=== PATIENT | female | born 1965 | race Caucasian/White ===

== ENCOUNTER 2018-10-08 09:51 | Day surgery (SDC) | payer BC, SELFPAY ==
[2018-10-08 10:12] VITALS: BP 129/85; PULSE 71; RESP 16; TEMP 36.2; O2SAT 96
[2018-10-08] MEDS: Lactated Ringers 1,000 ML 30 ML IV (10:22)
--- NOTE | 2018-10-08 12:00 | W.COLOREPORT ---
Date of service: 10/08/18 Time of Service: 10:40 Colonoscopy Report Date of procedure: 10/08/18 Pre-op diagnosis general: Colorectal cancer screening Post-op diagnosis procedure note: other (Normal colonoscopy to the cecum) Procedure: Colonoscopy to the cecum Surgeon: Jarred Martinez Anesthesia proc note operative: MAC (Logan Ha CRNA; ASA 2 Mallampati class II) Estimated blood loss (mL): 0 Pathology: none sent Complications: None Disposition: same day Indications: 53-year-old female presenting for colorectal cancer screening by colonoscopy. She has been asymptomatic since her last colonoscopy except for change in bowel habits from loose to, more constipation. Her last colonoscopy was unremarkable. She has no family history of colorectal cancer. The risks and benefits of the procedure have been discussed with her, and all her questions have been answered to her satisfaction. Consents been obtained to proceed with colonoscopy. Prep: Miralax/Dulcolax (Prep quality good) Procedure Start Time: 11:41 Procedure End Time: 11:55 Retraction Time: 9 Findings: Examining the colon from cecum to anus, no abnormalities were noted of the colon, rectum, and anus. Procedure Description: The patient was seen in the day surgery waiting area. Her identification was confirmed, and procedure checked. She was then brought to the procedure room. Monitoring for telemetry, blood pressure, oxygen saturation, and end tidal CO2 monitoring were applied. An appropriate time out was performed to confirm, identification, allergies, medication, procedure, was performed. Sedation was titrated for affect by the CATRACHITA; Once adequate sedation was achieved, I performed a inspection of the external perineum, and a digitial rectal examination. No significant external abnormalities were noted. On digital rectal examination, there was no blood, no masses, good rectal tone. I advanced the colonoscope from the anus to the cecum under direct visualization. The cecum was identified by the ileal-cecal valve, and the appendiceal orifice. The scope was then withdrawn in circumferential manner from the cecum to the rectum. No abnormalites were noted in the colon. The scope was then withdrawn into the rectum, and retroflexed. No abnormalities were noted of the rectum or anorectal junction. The scope was then withdrawn, terminating the procedure. There were no complications during the procedure, and the patient tolerated the procedure well. She was returned to the day surgery recovery area in good condition. Plan: Will continue with routine screening for colorectal cancer according to current consensus guidelines, which is currently 10 years.
--- NOTE | 2018-10-08 12:06 | W.PM.DSUDISC ---
Discharge Plan Disposition Patient Disposition: HOME Condition: Good Discharge Details Reason For Visit: Colorectal cancer screening Attending Provider: Jarred Martinez Primary Care Provider: Uli Braxton Home Meds and New Rx's Prescriptions: Continue diphenhydramine HCl 25 MG capsule 25 mg PO PRN RF: 0 albuterol sulfate 2.5 MG/3 ML solution for nebulization 2.5 mg Inhalation q4-6 h prn Qty: 1 RF: 0 albuterol sulfate [ProAir HFA] 8.5 GM HFA aerosol inhaler 1 - 2 puff Inhalation Q6H PRN Qty: 3 RF: 3 omeprazole 20 MG capsule,delayed release(DR/EC) 20 mg PO DAILY Qty: 90 RF: 4 coenzyme [id number] [Co Q-10 (with Vit E)] 1 EACH capsule 1 ea PO DAILY Qty: 90 RF: 3 krill oil 500 MG capsule 500 mg PO DAILY RF: 0 pravastatin 40 MG tablet 40 mg PO DAILY 90 Days Qty: 90 RF: 3 buspirone 7.5 MG tablet 7.5 mg PO BID Qty: 180 RF: 3 budesonide-formoterol [Symbicort] 10.2 GM HFA aerosol inhaler 2 puff Inhalation BID Qty: 1 RF: 11 fluticasone 16 GM spray,suspension 1 spray NS BID Qty: 3 RF: 4 Metoprolol Succinate 50 MG TAB.ER.24H 50 mg PO DAILY 90 Days Qty: 90 RF: 3 acetaminophen [Tylenol Extra Strength] 500 mg Tablet 500 mg PO PRN PRNRF: 0 Discharge Instructions Instructions: Colonoscopy (DC) Activity:: Activity as Tolerated Diet:: As Tolerated Discharge Orders Discharge Orders: Discharge Order (Routine); Ordered 10/08/18 Ordered By: Jarred Martinez DS: Diagnosis Discharge Diagnosis (1) Encounter for colorectal cancer screening: Start date: 10/08/18 Start time: 12:08 Status: Acute Asessment and Plan: Colonoscopy performed: Colonoscopy Report Date of procedure: 10/08/18 Pre-op diagnosis general: Colorectal cancer screening Post-op diagnosis : other (Normal colonoscopy to the cecum) Procedure: Colonoscopy to the cecum Surgeon: Jarred Martinez Anesthesia : MAC (Logan Ha CRNA; ASA 2 Mallampati class II) Estimated blood loss (mL): 0 Pathology: none sent Complications: None Disposition: same day Indications: 53-year-old female presenting for colorectal cancer screening by colonoscopy. She has been asymptomatic since her last colonoscopy except for change in bowel habits from loose to, more constipation. Her last colonoscopy was unremarkable. She has no family history of colorectal cancer. The risks and benefits of the procedure have been discussed with her, and all her questions have been answered to her satisfaction. Consents been obtained to proceed with colonoscopy. Prep: Miralax/Dulcolax (Prep quality good) Procedure Start Time: 11:41 Procedure End Time: 11:55 Retraction Time: 9 Findings: Examining the colon from cecum to anus, no abnormalities were noted of the colon, rectum, and anus. Procedure Description: The patient was seen in the day surgery waiting area. Her identification was confirmed, and procedure checked. She was then brought to the procedure room. Monitoring for telemetry, blood pressure, oxygen saturation, and end tidal CO2 monitoring were applied. An appropriate time out was performed to confirm, identification, allergies, medication, procedure, was performed. Sedation was titrated for affect by the CASTING FINISHER; Once adequate sedation was achieved, I performed a inspection of the external perineum, and a digitial rectal examination. No significant external abnormalities were noted. On digital rectal examination, there was no blood, no masses, good rectal tone. I advanced the colonoscope from the anus to the cecum under direct visualization. The cecum was identified by the ileal-cecal valve, and the appendiceal orifice. The scope was then withdrawn in circumferential manner from the cecum to the rectum. No abnormalites were noted in the colon. The scope was then withdrawn into the rectum, and retroflexed. No abnormalities were noted of the rectum or anorectal junction. The scope was then withdrawn, terminating the procedure. There were no complications during the procedure, and the patient tolerated the procedure well. She was returned to the day surgery recovery area in good condition. Plan: Will continue with routine screening for colorectal cancer according to current consensus guidelines, which is currently 10 years.
[2018-10-08 13:15] VITALS: BP 136/93; PULSE 72; RESP 16; TEMP 35.6; O2SAT 95
== END 2018-10-08 13:01 | disposition home or self-care (01) ==
PROVIDERS: PCP Family Medicine; Visit Provider Surgery
PROC: 0DJD8ZZ Inspection of Lower Intestinal Tract, Via Natural or Artificial Opening Endoscopic (ICD-10-PCS; CPT 45378; principal; 2018-10-08 12:00)
DX: Z12.11 Encounter for screening for malignant neoplasm of colon (principal); R19.8 Other specified symptoms and signs involving the digestive system and abdomen
CPT/HCPCS: 45378

== ENCOUNTER 2019-03-29 16:55 | Outpatient (REF) | payer BC, SELFPAY | END 2019-03-29 17:15 | LOC: LBN 16:55 | PROVIDERS: PCP Family Medicine; Visit Provider Family Medicine | DX: J02.9 Acute pharyngitis, unspecified (principal) | CPT/HCPCS: 87070 ==

== ENCOUNTER 2019-05-01 08:46 | Emergency (ER) | payer BC, SELFPAY ==
--- NOTE | 2019-05-01 08:51 | NUR.NOTE ---
pt has history of neck pain post a fall from a ladder 3 years ago. 2 nights ago PT awoke in the middle of the night with 7/10 pain in her lower neck and numbness in her right and left arm significantly more numbness in her right then her left
[2019-05-01 08:54] VITALS: BP 121/75; PULSE 71; RESP 18; TEMP 36.9; O2SAT 95
--- NOTE | 2019-05-01 09:16 | DI.RAD_ITS ---
SYMPTOM/DIAGNOSIS: NECK PAIN, C 6-7 TENDERNESS CERVICAL SPINE: Five views were obtained. There is a mild lower cervical kyphosis and there is mild loss of disc space height at C 5-6 level. Otherwise intervertebral disc spaces appear well maintained. Mild hypertrophic spurring of the facet joints and vertebral endplates is noted at multiple levels. Neural foramina appear fairly well maintained as visualized. No other focal bony abnormality is seen. CONCLUSION: Mild degenerative changes. No other significant findings.
[2019-05-01] MEDS: Lidocaine 5% Patch 1 PATCH TP (09:32)
--- NOTE | 2019-05-01 10:28 | DI.VRAD_ITS ---
EXAM: XR Cervical Spine, 4 or 5 Views EXAM DATE/TIME: 05/01/2019 9:17 AM CLINICAL HISTORY: 54 years old, female; Signs and symptoms; Symptoms: Neck pain. Woke up with the neck pain Thursday morning from sleep. No trauma TECHNIQUE: Imaging protocol: XR of the cervical spine, 4 or 5 views. COMPARISON: No relevant prior studies available. FINDINGS: Vertebrae: Mild facet arthropathy at C2-3. No acute fracture. Normal alignment. Soft tissues: Normal. IMPRESSION: No acute abnormality. Dictated and Authenticated by: Tasneem Galeana MD. Ordering:MICHAEL Kwon MD
--- NOTE | 2019-05-01 10:42 | ED.GENADUL_ITS ---
Discharge Plan Disposition Patient Disposition: HOME Condition: Stable Discharge Details Chief Complaint: Nk/Back Pain Clinical Impression: Cervical strain Primary Care Provider: Uli Braxton ED Provider: Doyle Saenz Home Meds and New Rx's Prescriptions: New capsaicin 0.1 % cream 1 applic TP TID PRN (Reason: neck pain) Qty: 42.5 RF: 0 lidocaine 5 % adhesive patch,medicated 1 patch TP DAILY PRN (Reason: neck pain) Qty: 15 RF: 0 Continued omeprazole 20 mg capsule,delayed release(DR/EC) 20 mg PO DAILY Qty: 90 RF: 4 clotrimazole 10 mg raquel 10 mg MM 5X/DAY Qty: 50 RF: 0 albuterol sulfate 2.5 MG/3 ML solution for nebulization 2.5 mg Inhalation q4-6 h prn Qty: 1 RF: 0 Symbicort 10.2 GM HFA aerosol inhaler 2 puff Inhalation BID Qty: 1 RF: 11 fluticasone propionate 16 GM spray,suspension 1 spray NS BID Qty: 3 RF: 4 Metoprolol Succinate 50 MG TAB.ER.24H 50 mg PO DAILY 90 Days Qty: 90 RF: 3 pravastatin 40 mg tablet 40 mg PO DAILY 90 Days Qty: 90 RF: 3 albuterol sulfate [ProAir HFA] 90 mcg/actuation HFA aerosol inhaler 2 puff Inhalation Q4H PRN (Reason: shortness of breath or wheezing) Qty: 18 RF: 11 buspirone 7.5 mg tablet 7.5 mg PO BID Qty: 180 RF: 3 acetaminophen [Tylenol Extra Strength] 500 mg Tablet 500 mg PO PRN PRNRF: 0 No Action cyclobenzaprine 5 mg tablet 5 - 10 mg PO TID PRN (Reason: muscle spasm) Qty: 60 RF: 0 Discharge Instructions Instructions: Cervical Strain (ED) Additional Instructions: Return to the emergency department for any new or significant worsening of symptoms, upper extremity dysfunction, or any further concerns. Otherwise use the soft collar, lidocaine patch, and capsaicin cream as needed for discomfort. If not improving over the next week please follow-up with your primary care provider for reassessment Referrals: Uli Braxton [Primary Care Provider] - 1 week (if not improving) Discharge Data Discharge Date/Time-TO BE ENTERED AT DEPARTURE: 05/01/19 11:30 Medical Decision Making Patient presenting to the emergency department for chief complaint of left-sided neck pain. Patient states that she woke up 2 mornings ago pain on the left side of her neck radiating down her upper extremities. Patient denied any recent injury or trauma but does state previous injury to her neck couple years ago with similar symptoms. Physical exam shows cervical spinal tenderness with more tenderness noted to palpation of the muscular soft tissue of the left trapezius neurosensory and motor exam of the upper extremities is unremarkable except for perceived shooting pain down the arms and hands. Given neurological symptoms patient is explaining I do feel that radiological imaging is warranted to evaluate for any acute changes. Pending results patient given lidocaine patch. Also pending results are reviewed patient's previous radiological images show severe degeneration of the cervical spine. Review of radiological imaging and radiologist interpretation shows Mild degenerative changes. No other significant findings. Patient reassessed and stated that the lidocaine patch did improve symptoms. Patient was encouraged to follow-up with primary care provider if not improving, given a soft collar to s ee if this helps with discomfort, and prescribed lidocaine and capsaicin to continue to help with symptoms. Return precautions were discussed. After discussion of diagnosis and plan of care patient has no further needs, questions, or concerns and states clear understanding to return to the emergency department for any worsening symptoms. HPI General Mode of arrival: ambulatory . Date/Time Provider Initiated Documentation: 05/01/19 08:57 . Limitations to Documentation: no limitations . Information obtained by: patient . History of Present Illness 54 year old F presents to the emergency department with the chief complaint of neck pain, described as moderate and similar to prior episodes, with intensity rated at 7. Quality is described as sharp, and is localized to the neck and left. Patient extremity. Patient started experiencing this day(s) (2) and it has been constant. Patient did receive the following treatments prior to arrival, NSAID Related Data Home Medications Medication Instructions Recorded Confirmed albuterol sulfate 2.5 mg INHALATION q4-6 h prn #1 box 04/14/14 05/04/19 Symbicort 2 puff INHALATION BID #1 ea 04/06/18 05/04/19 fluticasone propionate 1 spray NS BID #3 ea 05/04/18 05/04/19 acetaminophen [Tylenol Extra 500 mg PO PRN PRN 11/09/18 06/05/19 Strength] omeprazole 20 mg capsule,delayed 20 mg PO DAILY #90 tab-cap 12/20/18 05/04/19 release pravastatin 40 mg PO DAILY 90 Days #90 tab-cap 01/14/19 05/04/19 albuterol sulfate HFA 90 2 puff INHALATION Q4H PRN #18 gm 01/31/19 05/04/19 mcg/actuation aerosol inhaler buspirone 7.5 mg tablet 7.5 mg PO BID #180 tab-cap 02/02/19 05/04/19 clotrimazole 10 mg raquel 10 mg MM 5X/DAY #50 tab 03/29/19 05/04/19 capsaicin 1 applic TP TID PRN #42.5 gm 05/01/19 05/04/19 lidocaine 1 patch TP DAILY PRN #15 each 05/01/19 05/04/19 cyclobenzaprine 5 mg tablet 5 - 10 mg PO TID PRN #60 tab 05/04/19 05/04/19 Previous Rx's Medication Instructions Recorded Symbicort 2 puff INHALATION BID #1 ea 04/06/18 fluticasone propionate 1 spray NS BID #3 ea 05/04/18 omeprazole 20 mg capsule,delayed 20 mg PO DAILY #90 tab-cap 12/20/18 release pravastatin 40 mg PO DAILY 90 Days #90 tab-cap 01/14/19 albuterol sulfate HFA 90 2 puff INHALATION Q4H PRN #18 gm 01/31/19 mcg/actuation aerosol inhaler buspirone 7.5 mg tablet 7.5 mg PO BID #180 tab-cap 02/02/19 clotrimazole 10 mg raquel 10 mg MM 5X/DAY #50 tab 03/29/19 capsaicin 1 applic TP TID PRN #42.5 gm 05/01/19 lidocaine 1 patch TP DAILY PRN #15 each 05/01/19 cyclobenzaprine 5 mg tablet 5 - 10 mg PO TID PRN #60 tab 05/04/19 Allergies Allergy/AdvReac Type Severity Reaction Status Date / Time aspirin Allergy Severe Anaphylaxsi Verified 05/04/19 09:02 s ketorolac Allergy Severe Anaphylaxsi Verified 05/04/19 09:02 s NSAIDS (Non-Steroidal Allergy Severe Anaphylaxsi Verified 05/04/19 09:02 Anti-Inflamma s montelukast sodium AdvReac Mild Migraines Verified 05/04/19 09:02 [From [facility]] General Stated Complaint: Nk/Back Pain KWAME: 4 Review of Systems Constitutional Denies chills, Denies fever(s) and Denies headache(s) ENT Denies headache(s) and Reports neck pain Cardiovascular Denies chest pain and Denies dyspnea on exertion Respiratory Denies cough and Denies dyspnea on exertion Gastrointestinal Denies abdominal pain, Denies change in bowel habits, Denies diarrhea, Denies nausea and Denies vomiting Genitourinary Denies urinary incontinence Musculoskeletal Reports as per HPI, Denies back pain, Reports neck pain, Reports numbness and Reports tingling Integumentary/Breasts Denies rash Neurologic Denies confusion, Denies headache(s), Reports numbness and Reports tingling Psychiatric Denies confusion PFSH Medical History Asthma GERD (gastroesophageal reflux disease) Surgical History H/O colonoscopy (Chronic 05/01/06) H/O colonoscopy (Chronic 10/08/18) H/O colonoscopy (Inactive) Bilateral salpingectomy with oophorectomy Cholecystectomy (~2002) DEBRIDEMENT,SINUS Endometrial Ablation Endometrial Biopsy (~2008) Nasal sinus repair (~1993) Family History Mother Essential hypertension Depression Hyperlipidemia Father Diabetes Essential hypertension Heart disease Hyperlipidemia Sister Essential hypertension Depression Hyperlipidemia Sister Essential hypertension Personal history of malignant neoplasm Depression Hyperlipidemia Sister Essential hypertension Hyperlipidemia Brother Essential hypertension Hyperlipidemia Asthma Grandfather Alzheimer disease Grandfather Diabetes Essential hypertension Heart disease Hyperlipidemia Asthma Grandmother Essential hypertension Personal history of malignant neoplasm Grandmother Diabetes Heart disease Hyperlipidemia Stroke Son Diabetes Essential hypertension Hyperlipidemia Son No problems noted. Sister Hyperlipidemia Brother Substance abuse Essential hypertension Hyperlipidemia Asthma Social History Smoking/Tobacco Use Status: Former Tobacco Use Alcohol Intake: current Alcohol Intake frequency: holidays/special occasions only Drug use: Never Substance use type: does not use Do you feel safe at home: Yes Do you feel safe in your relationship?: Yes Exam Const General: cooperative and no acute distress Orientation: alert, awake and oriented x3 Neck Neck: normal visual inspection Resp Effort & Inspection: normal respiratory effort Auscultation: clear to auscultation bilaterally Cardio Rate: regular rate Rhythm: regular rhythm Heart Sounds: S1 normal and S2 normal Back/Spine/Pelvis Cervical Spine: cervical muscular tenderness (left), pain with cervical ROM, cervical spasm, cervical spinal tenderness and No step off deformity Thoracic/Lumbar Spine: thoracic and lumbar spine normal to inspection Neuro General: alert, awake, oriented x3, gait normal, moves all extremities, normal light touch, pain and propioception, no focal motor deficits and deep tendon reflexes 2+ bilaterally Sensory Exam: no sensory deficits noted Course Vital Signs Temperature 36.9 C 05/01/19 08:54 Pulse 71 05/01/19 08:54 Respiratory Rate 18 05/01/19 08:54 Blood Pressure 121/75 05/01/19 08:54 Pulse Oximetry 95 05/01/19 08:54 Temperature 36.9 C 05/01/19 08:54 Temperature Source Tympanic 05/01/19 08:54 Pulse 71 05/01/19 08:54 Respiratory Rate 18 05/01/19 08:54 Respiratory Effort 05/01/19 08:59 Blood Pressure 121/75 05/01/19 08:54 Blood Pressure Position Sitting 05/01/19 08:54 Pulse Oximetry 95 05/01/19 08:54 Oxygen Delivery Method Room Air 05/01/19 08:54 Oxygen Flow Rate 0 05/01/19 08:54 Pain Level 7 05/01/19 08:54
--- NOTE | 2019-05-01 11:29 | NUR.NOTE ---
pt states significant improvement with lidocaine Nursing Note:
[2019-05-01 11:30] VITALS: BP 120/70; PULSE 68; RESP 18; TEMP 36.9; O2SAT 95
== END 2019-05-01 11:30 | disposition home or self-care (01) ==
PROVIDERS: Emergency Provider Nurse Practitioner Family; PCP Family Medicine
DX: S16.1XXA Strain of muscle, fascia and tendon at neck level, initial encounter (principal); X58.XXXA Exposure to other specified factors, initial encounter
CPT/HCPCS: 99283; 72050

== ENCOUNTER 2019-10-17 19:33 | Outpatient (REF) | payer OTHER, SELFPAY ==
[2019-10-17 19:46] LABS: Bilirubin Negative (Negative); Blood Large (Negative); Clarity Cloudy (Clear); Glucose Negative (Negative); Ketones Negative (Negative); Leukocyte Esterase Moderate (Negative); Nitrite Positive (Negative); Specific Gravity 1.025 (1.005-1.025); Urobilinogen 0.2 EU/dL (Up TO 0.2); pH 6.5 (5-8)
[2019-10-17 20:06] LABS: Bacteria Many HPF (Negative); C & S Indicated? C&S Done As Ordered; Crystals Negative HPF (Negative); Epithelial Cells Moderate HPF (Negative); Mucus Negative (Negative); Other Cells Few Transitional (Negative); RBC >50 HPF (0-2); WBC >50 HPF (0-5)
== END 2019-10-17 19:53 ==
LOC: NCHCN 19:33
PROVIDERS: PCP Family Medicine; Visit Provider Family Medicine
DX: N39.0 Urinary tract infection, site not specified (principal)
CPT/HCPCS: 87077; 81003; 81015; 87086; 87186

== ENCOUNTER 2020-06-29 02:23 | Outpatient (CLI) | payer OTHER, SELFPAY ==
[2020-06-29 13:05] LABS: ALT 27 U/L (14-59); AST 22 U/L (15-37); Albumin 4.1 g/dL (3.4-5.0); Alkaline Phosphatase 56 U/L (46-116); Anion Gap 7.3 mmol/L (3-11); BUN 15 mg/dL (7-18); Bilirubin, Total 0.5 mg/dL (0.2-1.0); CO2 29.7 mmol/L (21.0-32.0); Calcium 9.7 mg/dL (8.5-10.1); Calculated LDL 153 mg/dL (<100); Chloride 104 mmol/L (98-107); Cholesterol 225 mg/dL (<200); Glucose 91 mg/dL (74-106); HDL Cholesterol 48 mg/dL (40-60); Magnesium 2.2 mg/dL (1.8-2.4); Potassium 4.6 mmol/L (3.5-5.1); Sodium 141 mmol/L (136-145); TSH (W/Ref FT4) 1.57 uIU/mL (0.36-3.74); Total Protein 7.7 g/dL (6.4-8.2); Triglyceride 121 mg/dL (<150)
== END 2020-06-29 02:43 ==
PROVIDERS: PCP Family Medicine; Visit Provider Family Medicine
DX: R25.2 Cramp and spasm (principal); E78.5 Hyperlipidemia, unspecified
CPT/HCPCS: 36415; 80053; 80061; 83735; 84443

== ENCOUNTER 2021-03-18 01:29 | Outpatient (CLI) | payer BC, SELFPAY ==
--- NOTE | 2021-03-18 08:17 | DI.MAMMO_ITS ---
EXAM: MG MAMMO SCREENING CLINICAL HISTORY: screening,Z12.39. TECHNIQUE: Bilateral full field digital CC and MLO mammographic images were obtained with 3D tomosyn thesis and utilizing computer aided detection (CAD). COMPARISON: Prior mammograms dating back to 2010, the most recent being June 2016.. FINDINGS: There are no CAD designations. There are no new spiculated masses nor malignant appearing microcalcification groups. There is no significant architectural distortion nor skin thickening-retraction. IMPRESSION: No radiographic evidence of malignancy. BI-RADS Category 1 - Negative Breast Density - Category B - Scattered areas of fibroglandular density Breast density Category C or D implies that the patient has dense breast tissue. Dense breast tissue can make it harder to find cancer on a mammogram. Dense breast tissue is also associated with an incr eased risk of breast cancer. This information about the result of the mammogram report was provided to the patient to raise their awareness. Use this report when you speak with the patient about their risks for breast cancer, which includes their family history. At that time, you may recommend additional screening tests (Ultrasoun d or MRI) as these tests may add significant information. A negative radiographic report should not delay biopsy if a dominant or clinically suspicious mass is present. Up to ten percent of cancers are not identified on mammography. A negative report may reinforce clinical impression. Adenosis and dense breasts may obscure an underlying neoplasm. False positive reports average 6 to 10%. Patient will receive a letter notifying them of these results.
== END 2021-03-18 01:49 ==
PROVIDERS: PCP Family Medicine; Visit Provider Nurse Practitioner Family
DX: Z12.31 Encounter for screening mammogram for malignant neoplasm of breast (principal)
CPT/HCPCS: 77063; 77067

== ENCOUNTER 2021-05-01 09:53 | Outpatient (REF) | payer BC, SELFPAY | END 2021-05-01 09:54 | disposition home or self-care (01) | LOC: NCHCN 09:53 | PROVIDERS: PCP Nurse Practitioner Family; Visit Provider Nurse Practitioner Family | DX: N39.0 Urinary tract infection, site not specified (principal) | CPT/HCPCS: 87077; 87086; 87186 ==

== ENCOUNTER 2021-07-06 10:15 | Emergency (ER) | payer BC, SELFPAY ==
--- NOTE | 2021-07-06 10:15 | RT.EKG_ITS ---
APPROVED REPORT Exam: Resting ECG Reason for Exam: chest pain Patient Location: E HR:70 bpm ECG Measurements Heart Rate 70 AXIS TN 173 P 46 QRSd 85 QRS -14 QT 425 T 62 QTc 460 Conclusion Sinus rhythm...normal P axis, V-rate 60- 99. No STEMI. I have reviewed and interpreted ECG and agree with software generated interpretation.
[2021-07-06 10:20] VITALS: BP 160/105; PULSE 70; RESP 17; TEMP 36.6; O2SAT 97
--- NOTE | 2021-07-06 10:45 | DI.RAD_ITS ---
Exam(s) XR CHEST 2V PA LATERAL EXAM: XR CHEST 2V PA LATERAL CLINICAL HISTORY: chest pain TECHNIQUE: COMPARISON: CR CHEST 2 VIEWS PA,LAT from 06/20/2015 FINDINGS: The heart is not enlarged. Lungs appear generally clear. There is a prominent epicardial fat pad on the right. No pleural effusion seen. IMPRESSION: No evidence of acute process. RADIATION DOSE DELIVERED: Total DLP
--- NOTE | 2021-07-06 10:50 | ED.GENADUL_ITS ---
Discharge Plan Disposition Patient Disposition: HOME Condition: Stable Discharge Details Clinical Impression: Chest pain Primary Care Provider: Donal Gordon ED Provider: Desmond John Home Meds and New Rx's Prescriptions: Continued fluticasone propionate 50 mcg/actuation spray,suspension 1 spray NS BID Qty: 3 RF: 4 albuterol sulfate [ProAir HFA] 90 mcg/actuation HFA aerosol inhaler 2 puff Inhalation Q4H PRN (Reason: shortness of breath or wheezing) Qty: 8.5 RF: 6 budesonide-formoterol [Symbicort] 160-4.5 mcg/actuation HFA aerosol inhaler 2 puff Inhalation BID Qty: 3 RF: 4 omeprazole 20 mg capsule,delayed release(DR/EC) 20 mg PO DAILY Qty: 90 RF: 4 metoprolol succinate 50 mg tablet extended release 24 hr 50 mg PO DAILY Qty: 90 RF: 3 acetaminophen [Tylenol Extra Strength] 500 mg Tablet 500 mg PO PRN PRNRF: 0 Discharge Instructions Instructions: Chest Pain (ED) Additional Instructions: Work-up in the ER does not reveal any obvious emergent process. Please watch for new or worsening symptoms and return to the ER for any concerns. Otherwise I strongly recommend reaching out your primary care provider on Thursday to discuss your ongoing symptoms and need for outpatient Discharge Data Discharge Date/Time-TO BE ENTERED AT DEPARTURE: 07/06/21 14:44 Medical Decision Making 56-year-old female presents to the ER today for acute on chronic chest discomfort, overall present for nearly 3 years but worse over the past week. Clinically she appears well, nontoxic, no reproducible discomfort, initial blood pressure slightly hypertensive otherwise vital signs unremarkable. Given her presentation, low suspicion for ACS, PE, dissection, etc. Will obtain cardiac work-up and patient is agreeable to a troponin if initial work-up is unremarkable. Did discuss that very well could be musculoskeletal, GI related, etc. and further evaluation may be necessary to further diagnose her ongoing symptoms. Initial laboratory values are unremarkable for any obvious emergent process. D- dimer normal at 358, will not pursue CTA of the chest. Initial troponin less than 0.05. TSH 1.13. Chest x-ray also unremarkable per radiology. Patient states that while sitting here in the ER she has had occasional fleeting sharp, pinching pain. Blood pressure is trending downward, she appears well, nontoxic, no acute distress and is hemodynamically stable. She is agreeable to a delta troponin. Delta troponin remains less than 0.05. We discussed her work-up here in the ER and the importance of outpatient follow-up through her primary care provider and potentially additional specialist to further evaluate her symptoms. She was encouraged to return to the ER for new or worsening symptoms. Patient is agreeable with this plan, relieved that her work-up thus far has been benign, and plans to contact her primary care provider on Thursday. Standard discharge and return precautions given. This documentation was generated using [employer] system, please disregard any oddities of phrase or misspellings. Medical Records Medical records reviewed: Yes I reviewed the patient's medical records. Imaging Data Radiologic Study: Attestation: I personally reviewed and interpreted this imaging study as follows: Imaging: X-Ray Radiologist's impression: PROCEDURE INFORMATION: Exam: XR Chest Exam date and time: 07/06/2021 10:49 AM Age: 56 years old Clinical indication: Other: Chest pain TECHNIQUE: Imaging protocol: XR of the chest. Views: 2 views. COMPARISON: CR CHEST 2 VIEWS PA,LAT 06/20/2015 8:25 PM FINDINGS: Lungs: Unremarkable. No consolidation. Pleural spaces: Unremarkable. No pleural effusion. No pneumothorax. Heart/Mediastinum: Unremarkable. No cardiomegaly. Bones/joints: Unremarkable. IMPRESSION: No evidence of active cardiopulmonary disease. Lab Data Lab results reviewed: Yes I reviewed the patient's lab results. Labs: Laboratory Tests Range/Units 07/06/21 07/06/21 07/06/21 10:30 10:30 11:02 WBC (4.4-10.8) 10^3/uL 7.36 RBC (3.93-5.22) 10^6/uL 5.18 Hgb (11.2-15.7) g/dL 14.7 Hct (36.0-46.0) % 44.7 MCV (80-95) fL 86.3 MCH (27.0-33.0) pg 28.4 MCHC (32.0-36.0) % 32.9 RDW (11.7-14.6) % 12.4 Plt Count (130-400) 10^3/uL 341 MPV (8.0-11.0) fL 9.2 Immature Gran % 0.4 Neutrophils % 60.3 Lymphocytes % 26.9 Monocytes % 9.2 Eosinophils % 2.4 Basophils % 0.8 Nucleated RBC % % 0 Absolute Neutrophils (1.2-6.7) 10^3/uL 4.43 Absolute Lymphocytes (1.2-3.4) 10^3/uL 1.98 Absolute Monocytes (0.1-0.8) 10^3/uL 0.68 Absolute Eosinophils (0.0-0.7) 10^3/uL 0.18 Absolute Basophils (0.0-0.2) 10^3/uL 0.06 PT (9.3-11.0) sec 10.1 INR (0.9-1.1) 1.0 APTT (21.0-27.5) sec 21.9 D-Dimer (<500) ng/mlFEU 350 Sodium (136-145) mmol/L 140 Potassium (3.5-5.1) mmol/L 3.8 Chloride (98-107) mmol/L 103 Carbon Dioxide (21.0-32.0) mmol/L 28.8 Anion Gap (3-11) mmol/L 8.2 BUN (7-18) mg/dL 20 H Creatinine (0.55-1.02) mg/dL 0.7 Estimated GFR/1.73 m2 (mL/min/1.73m2) >= 60.00 Glucose (74-106) mg/dL 93 Calcium (8.5-10.1) mg/dL 9.5 Magnesium (1.8-2.4) mg/dL 2.1 Total Bilirubin (0.2-1.0) mg/dL 0.6 AST (15-37) U/L 24 ALT (14-59) U/L 36 Alkaline Phosphatase (46-116) U/L 66 Troponin I (<0.06) ng/mL < 0.05 NT-Pro-B Natriuret Pep (<300) pg/mL 21 Total Protein (6.4-8.2) g/dL 8.3 H Albumin (3.4-5.0) g/dL 3.9 TSH (0.36-3.74) uIU/mL 1.13 Range/Units 07/06/21 13:50 WBC (4.4-10.8) 10^3/uL RBC (3.93-5.22) 10^6/uL Hgb (11.2-15.7) g/dL Hct (36.0-46.0) % MCV (80-95) fL MCH (27.0-33.0) pg MCHC (32.0-36.0) % RDW (11.7-14.6) % Plt Count (130-400) 10^3/uL MPV (8.0-11.0) fL Immature Gran % Neutrophils % Lymphocytes % Monocytes % Eosinophils % Basophils % Nucleated RBC % % Absolute Neutrophils (1.2-6.7) 10^3/uL Absolute Lymphocytes (1.2-3.4) 10^3/uL Absolute Monocytes (0.1-0.8) 10^3/uL Absolute Eosinophils (0.0-0.7) 10^3/uL Absolute Basophils (0.0-0.2) 10^3/uL PT (9.3-11.0) sec INR (0.9-1.1) APTT (21.0-27.5) sec D-Dimer (<500) ng/mlFEU Sodium (136-145) mmol/L Potassium (3.5-5.1) mmol/L Chloride (98-107) mmol/L Carbon Dioxide (21.0-32.0) mmol/L Anion Gap (3-11) mmol/L BUN (7-18) mg/dL Creatinine (0.55-1.02) mg/dL Estimated GFR/1.73 m2 (mL/min/1.73m2) Glucose (74-106) mg/dL Calcium (8.5-10.1) mg/dL Magnesium (1.8-2.4) mg/dL Total Bilirubin (0.2-1.0) mg/dL AST (15-37) U/L ALT (14-59) U/L Alkaline Phosphatase (46-116) U/L Troponin I (<0.06) ng/mL < 0.05 NT-Pro-B Natriuret Pep (<300) pg/mL Total Protein (6.4-8.2) g/dL Albumin (3.4-5.0) g/dL TSH (0.36-3.74) uIU/mL ECG Data Attestation: I personally reviewed and interpreted this ECG (s) as follows: Interpretation: Please see official report by Dr. Gomez. Sinus rhythm, ventricular rate of 70. No STEMI HPI General Mode of arrival: ambulatory . Date/Time Provider Initiated Documentation: 07/06/21 10:17 . Limitations to Documentation: no limitations . Information obtained by: patient and family . HPI Narrative: This is a 56-year-old female, past medical history of asthma, GERD, hyperlipidemia, arrhythmia, presenting to the ER today for evaluation of chest pain. Patient states that chest pain is just above her epigastric region, is intermittent, sharp, feels like pinching. She states that at times over the past couple of weeks, she has noticed that she has tingling in both of her hands and her feet has spasms. She has not taken any [id number] medication for her symptoms. 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 Patient states that she feels as though her symptoms are more consistent over the past week which is what is prompting her ER visit today. She does report increased stress, her is primarily in [place], she is in the process of selling her house. She denies recent illness or trauma, denies headache, fever, neck pain, shortness of breath, abdominal pain, nausea vomiting change in bowel or bladder function, focal weakness, pain or swelling in her bilateral lower extremities. Patient reports that the pain sometimes radiates bilaterally under both of her breasts. It is fairly consistent but does come on more severely at times with more sharp pain. Nothing really makes it worse or better. Related Data Home Medications Medication Instructions Recorded Confirmed acetaminophen [Tylenol Extra 500 mg PO PRN PRN 10/08/18 07/06/21 Strength] fluticasone propionate 50 1 spray NS BID #3 ea 05/26/19 07/06/21 mcg/actuation nasal spray,suspension ProAir HFA 90 mcg/actuation 2 puff INHALATION Q4H PRN #8.5 gm 04/17/20 07/06/21 aerosol inhaler NS budesonide-formoterol HFA 160 2 puff INHALATION BID #3 each 04/12/21 08/07/21 mcg-4.5 mcg/actuation aerosol inhaler omeprazole 20 mg capsule,delayed 20 mg PO DAILY #90 tab-cap 03/27/21 07/06/21 release metoprolol succinate 50 mg 50 mg PO DAILY #90 tab 04/22/21 07/06/21 tablet,extended release 24 hr Previous Rx's Medication Instructions Recorded fluticasone propionate 50 1 spray NS BID #3 ea 05/26/19 mcg/actuation nasal spray,suspension ProAir HFA 90 mcg/actuation 2 puff INHALATION Q4H PRN #8.5 gm 04/17/20 aerosol inhaler NS budesonide-formoterol HFA 160 2 puff INHALATION BID #3 each 03/11/21 mcg-4.5 mcg/actuation aerosol inhaler omeprazole 20 mg capsule,delayed 20 mg PO DAILY #90 tab-cap 03/27/21 release metoprolol succinate 50 mg 50 mg PO DAILY #90 tab 04/22/21 tablet,extended release 24 hr Allergies Allergy/AdvReac Type Severity Reaction Status Date / Time aspirin Allergy Severe Anaphylaxsi Verified 07/06/21 10:25 s ketorolac Allergy Severe Anaphylaxsi Verified 07/06/21 10:25 s NSAIDS (Non-Steroidal Allergy Severe Anaphylaxsi Verified 07/06/21 10:25 Anti-Inflamma s montelukast sodium AdvReac Mild Migraines Verified 07/06/21 10:25 [From [facility]] General Stated Complaint: Chest Pain KWAME: 2 Review of Systems Constitutional Constitutional: Denies fever(s) and Denies headache(s) Eyes Eyes: Denies change in vision ENT Ears, Nose, Mouth, and Throat: Denies headache(s) and Denies neck pain Cardiovascular Cardiovascular: Reports chest pain and Denies dyspnea Respiratory Respiratory: Denies cough and Denies dyspnea Gastrointestinal Gastrointestinal: Denies abdominal pain, Denies nausea and Denies vomiting Genitourinary Genitourinary: Denies dysuria Musculoskeletal Musculoskeletal: Denies neck pain Integumentary/Breasts Skin/Breast: Denies rash Neurologic Neurologic: Denies headache(s) Psychiatric Psychiatric: Reports other (Increased stress) [facility] Medical History Asthma GERD (gastroesophageal reflux disease) MRSA (methicillin resistant staph aureus) culture positive (11/12/15) 11/26/15;[facility] Surgical History Bilateral salpingectomy with oophorectomy 11/28/15 DR. RAY Cholecystectomy (~2002) DEBRIDEMENT,SINUS 11/26/15; [facility] Endometrial Ablation Endometrial Biopsy (~2008) 2008 2010 H/O colonoscopy H/O colonoscopy (05/01/06) Dr Dias, negative, repeat in 10 years H/O colonoscopy (10/08/18) dr romero, no abnormalities, repeat 10 years Nasal sinus repair (~1993) Family History Mother Essential hypertension Depression Hyperlipidemia Father Diabetes Essential hypertension Heart disease Hyperlipidemia Sister Essential hypertension Depression Hyperlipidemia Sister Essential hypertension Personal history of malignant neoplasm UTERINE Depression Hyperlipidemia Sister Essential hypertension Hyperlipidemia Brother Essential hypertension Hyperlipidemia Asthma Grandfather Alzheimer disease Grandfather Diabetes Essential hypertension Heart disease Hyperlipidemia Asthma Grandmother Essential hypertension Personal history of malignant neoplasm UTERINE/BREAST Grandmother Diabetes Heart disease Hyperlipidemia Stroke Son Diabetes Essential hypertension Hyperlipidemia Son No problems noted. Sister Hyperlipidemia Brother Substance abuse Essential hypertension Hyperlipidemia Asthma Social History Smoking/Tobacco Use Status: Former Tobacco Use Quit Date: 11/30/07 Second Hand Exposure: Yes Smoking risk assessment performed?: Yes Alcohol Intake: current Alcohol Intake frequency: a few times a month Alcohol type: wine Drug use: Never Substance use type: does not use Caregiver/Support person: Yes Household members: spouse Communication Needs: None Do you need help understanding health information?: Rarely Pets and animals: Yes Pets and animals: dog(s) Sexually active: Yes Do you think of yourself as: straight/heterosexual Current gender identity: female What is your relationship status?: How often do you talk on the phone with friends or family?: once per week How often do you get together with friends or relatives?: never How often do you attend restorationism or buddhism services?: 1-3 times per year Do you belong to any clubs or organized social groups?: no Panel score (0-1 are the most socially isolated patients): 1 What type of physical activity do you participate in: walking Duration: 45-60 minutes/day Frequency: 5-6 times per week Karen/Christianity: No preference Seatbelt use: always Helmet use: Yes Helmet use: always Drive intox or ride w/intox driver education instructor: No Do you feel safe at home: Yes Do you feel safe in your relationship?: Yes Exam Const General: cooperative, healthy appearing, comfortable and no acute distress Orientation: alert, awake and oriented x3 HENMT Head: normal to inspection, normocephalic and atraumatic Face and sinus: normal facial exam Mouth: moist mucous membranes Eyes General: appearance normal, both eyes and all related structures Conjunctivae: conjunctivae normal Neck Neck: normal visual inspection, full ROM, trachea midline and supple Chest Chest: normal inspection of the chest and normal palpation of entire chest wall Resp Effort & Inspection: normal respiratory effort and able to speak in complete sentences Auscultation: clear to auscultation bilaterally Cardio Rate: regular rate Rhythm: regular rhythm GI Inspection: normal to inspection Palpation: soft and nontender Back/Spine/Pelvis Back: no CVA tenderness and No back tenderness Skin General skin exam: no rashes or lesions noted Neuro General: patient alert, patient awake, moves all extremities and no focal motor deficits Cognition: normal cognition Speech: speech normal Gait: normal gait Sensory Exam: no sensory deficits noted Extrem General: normal to inspection, full ROM, capillary refill normal, no pedal edema and no calf tenderness Psych Appearance: grossly normal Mental Status: mental status grossly normal Course Vital Signs Vital signs: Vital Signs Temperature 36.6 C 07/06/21 10:20 Pulse 70 07/06/21 10:20 Respiratory Rate 17 07/06/21 10:20 Blood Pressure 160/105 H 07/06/21 10:20 Pulse Oximetry 97 07/06/21 10:20 Temperature 36.6 C 07/06/21 10:20 Temperature Source Temporal Artery Scan 07/06/21 10:20 Pulse 70 07/06/21 10:20 Respiratory Rate 17 07/06/21 10:20 Respiratory Effort Non-Labored 07/06/21 10:24 Blood Pressure 160/105 H 07/06/21 10:20 Blood Pressure Position Supine 07/06/21 10:20 Pulse Oximetry 97 07/06/21 10:20 Oxygen Delivery Method Room Air 07/06/21 10:20 Oxygen Flow Rate 0 07/06/21 10:20 Pain Level 4 07/06/21 10:20
[2021-07-06 10:53] VITALS: RESP 13
[2021-07-06 11:09] LABS: Abs Immature Grans 0.03 10^3/uL (0.0-0.06); Absolute Basophil Count 0.06 10^3/uL (0.0-0.2); Absolute Eosinophil Count 0.18 10^3/uL (0.0-0.7); Absolute Lymphocyte Count 1.98 10^3/uL (1.2-3.4); Absolute Monocyte Count 0.68 10^3/uL (0.1-0.8); Absolute Neutrophil Count 4.43 10^3/uL (1.2-6.7); Basophils % 0.8; Eosinophils % 2.4; HCT 44.7 % (36.0-46.0); HGB 14.7 g/dL (11.2-15.7); Immature Grans % 0.4; Lymphocytes % 26.9; MCH 28.4 pg (27.0-33.0); MCHC 32.9 % (32.0-36.0); MCV 86.3 fL (80-95); MPV 9.2 fL (8.0-11.0); Monocytes % 9.2; Neutrophils % 60.3; Nucleated RBC 0 %; Platelet Count 341 10^3/uL (130-400); RBC 5.18 10^6/uL (3.93-5.22); RDW 12.4 % (11.7-14.6); RDW-SD 39.6 fL; WBC 7.36 10^3/uL (4.4-10.8)
[2021-07-06 11:30] LABS: ALT 36 U/L (14-59); AST 24 U/L (15-37); Albumin 3.9 g/dL (3.4-5.0); Alkaline Phosphatase 66 U/L (46-116); Anion Gap 8.2 mmol/L (3-11); BUN 20 mg/dL (7-18); Bilirubin, Total 0.6 mg/dL (0.2-1.0); CO2 28.8 mmol/L (21.0-32.0); CREATININE 0.7 mg/dL (0.55-1.02); Calcium 9.5 mg/dL (8.5-10.1); Chloride 103 mmol/L (98-107); Glucose 93 mg/dL (74-106); Magnesium 2.1 mg/dL (1.8-2.4); NT-proBNP 21 pg/mL (<300); Potassium 3.8 mmol/L (3.5-5.1); Sodium 140 mmol/L (136-145); TSH (W/Ref FT4) 1.13 uIU/mL (0.36-3.74); Total Protein 8.3 g/dL (6.4-8.2); Troponin I < 0.05 ng/mL (<0.06)
[2021-07-06 11:32] LABS: PTT Activated 21.9 sec (21.0-27.5); Prothrombin Time 10.1 sec (9.3-11.0)
--- NOTE | 2021-07-06 11:43 | DI.VRAD_ITS ---
PROCEDURE INFORMATION: Exam: XR Chest Exam date and time: 07/06/2021 10:49 AM Age: 56 years old Clinical indication: Other: Chest pain TECHNIQUE: Imaging protocol: XR of the chest. Views: 2 views. COMPARISON: CR CHEST 2 VIEWS PA,LAT 06/20/2015 8:25 PM FINDINGS: Lungs: Unremarkable. No consolidation. Pleural spaces: Unremarkable. No pleural effusion. No pneumothorax. Heart/Mediastinum: Unremarkable. No cardiomegaly. Bones/joints: Unremarkable. IMPRESSION: No evidence of active cardiopulmonary disease. Dictated and Authenticated by: Vidhi Murry MD. Ordering:ELIZABETH Logan MD
[2021-07-06 11:49] LABS: D-Dimer 350 ng/mlFEU (<500)
[2021-07-06 13:07] VITALS: BP 109/82; PULSE 96; TEMP 36.7; O2SAT 96
[2021-07-06 14:16] LABS: Troponin I < 0.05 ng/mL (<0.06)
== END 2021-07-06 14:44 | disposition home or self-care (01) ==
PROVIDERS: Emergency Provider Physician Assistant; PCP Nurse Practitioner Family
DX: R07.9 Chest pain, unspecified (principal)
CPT/HCPCS: 36415; 80053; 93005; 99284; 71046; 83735; 83880; 84443; 84484; 85025; 85379; 85610; 85730; 93010

== ENCOUNTER 2021-07-09 16:42 | Outpatient (CLI) | payer BC, SELFPAY ==
--- NOTE | 2021-07-09 16:30 | RT.EKG_ITS ---
APPROVED REPORT Exam: Resting ECG Reason for Exam: chest pain Patient Location: O HR:71 bpm ECG Measurements Heart Rate 71 AXIS TX 167 P 59 QRSd 80 QRS -3 QT 409 T 67 QTc 444 Conclusion Sinus rhythm...normal P axis, V-rate 60- 99
== END 2021-07-09 16:43 | disposition home or self-care (01) ==
LOC: DI.CM 16:42
PROVIDERS: PCP Nurse Practitioner Family; Visit Provider Physician Assistant
DX: R07.9 Chest pain, unspecified (principal)
CPT/HCPCS: 93010

== ENCOUNTER 2021-07-09 20:43 | Outpatient (REF) | payer BC, SELFPAY ==
[2021-07-11 11:36] LABS: Lyme Ab w Rflx to Lyme Confirm Negative (Negative)
[2021-07-11 20:35] LABS: Anaplasma phagocytophilum Negative (Negative); B. miyamotoi PCR Negative (Negative); Babesia divergens/MO-1 Negative (Negative); Babesia duncani Negative (Negative); Babesia microti Negative (Negative); Ehrlichia chaffeensis Negative (Negative); Ehrlichia ewingii/canis Negative (Negative); Ehrlichia muris eauclairensis Negative (Negative)
== END 2021-07-09 20:44 | disposition home or self-care (01) ==
LOC: NCHCN 20:43
PROVIDERS: PCP Nurse Practitioner Family; Visit Provider Physician Assistant
DX: R07.9 Chest pain, unspecified (principal)
CPT/HCPCS: 87798; 86618

== ENCOUNTER 2021-08-19 15:55 | Outpatient (REF) | payer BC, SELFPAY ==
[2021-08-20 16:43] LABS: COVID-19 RT-PCR UVMMC Result Negative (Negative)
== END 2021-08-19 15:56 | disposition home or self-care (01) ==
LOC: LBN 15:55
PROVIDERS: PCP Nurse Practitioner Family; Referring Provider Nurse Practitioner Family; Visit Provider Nurse Practitioner Family
DX: Z20.822 Contact with and (suspected) exposure to COVID-19 (principal); J06.9 Acute upper respiratory infection, unspecified
CPT/HCPCS: U0003

== ENCOUNTER 2021-10-09 12:56 | Emergency (ER) | payer BC, SELFPAY ==
[2021-10-09 13:23] VITALS: BP 136/90; PULSE 82; RESP 16; TEMP 36.6; O2SAT 98
--- NOTE | 2021-10-09 14:30 | DI.CT_ITS ---
Exam(s) CT ABDOMEN PELVIS W EXAM: CT ABDOMEN PELVIS W CLINICAL HISTORY: Right flank pain. TECHNIQUE: Imaging Protocol: Axial computed tomography images with coronal and sagittal reformatted images were created and reviewed CONTRAST MATERIAL: Intravenous: Omnipaque 350 Contrast volume: 85 ml Oral: / no COMPARISON: CR,XR XR CHEST 2V PA LATERAL from 07/06/2021 CR,XR XR CHEST 2V PA LATERAL from 07/06/2021 FINDINGS: ABDOMEN: Lung Bases: Peripheral patchy opacities. Liver: Fatty infiltration.. No measurable mass. Gallbladder and biliary tract: Status post cholecystectomy. No radiodense calculus or dilation. Pancreas: Normal density, no abnormal calcifications or inflammatory process. Spleen: Normal. Kidneys: Normal size, contour and axis. No radiodense stones or obstructive uropathy. No masses seen. Adrenal glands: No masses seen. Abdominal Aorta: Abdominal portion non-dilated. Atherosclerotic changes. Soft tissues: Small fatty containing umbilical hernia. PELVIS: Bladder: Nearly empty, no gross wall thickening. No calculi.No focal mass. Bowel: Mild diverticulosis. No diverticulitis. No obstruction or bowel wall thickening. Appendix no rmal. Peritoneal cavity: No ascites, collection or mesenteric inflammatory response. Bones: Within normal limits for age. Reproductive organs: Within normal limits. Lymph nodes: Unremarkable. Impression: Peripheral patchy infiltrates lower lobes. Unremarkable CT scan of the abdomen and pelvis. RADIATION DOSE DELIVERED: 891.08mGy.cm Total DLP DATA REPOSITORY: All CT scans at this facility are submitted to the National Radiology Data Registry (NRDR) Dose Index Registry (DIR) with the [employer] ([employer]). RADIATION OPTIMIZATION: All CT scans at this facility use at least one of these dose optimization te chniques: automated exposure control; mA and/or kV adjustment per patient size (includes targeted exa ms where dose is matched to clinical indication); or iterative reconstruction.
[2021-10-09 14:51] LABS: Clarity Clear (Clear); Specific Gravity 1.025 (1.005-1.025); pH 5.5 (5-8)
[2021-10-09 14:52] LABS: Bilirubin Negative (Negative); Blood Negative (Negative); Glucose Negative (Negative); Ketones Negative (Negative); Leukocyte Esterase Negative (Negative); Nitrite Negative (Negative); Urobilinogen 0.2 EU/dL (Up TO 0.2)
[2021-10-09 15:04] LABS: Abs Immature Grans 0.03 10^3/uL (0.0-0.06); Absolute Basophil Count 0.04 10^3/uL (0.0-0.2); Absolute Eosinophil Count 0.21 10^3/uL (0.0-0.7); Absolute Lymphocyte Count 2.43 10^3/uL (1.2-3.4); Absolute Monocyte Count 0.68 10^3/uL (0.1-0.8); Absolute Neutrophil Count 3.89 10^3/uL (1.2-6.7); Basophils % 0.5; Eosinophils % 2.9; HCT 42.8 % (36.0-46.0); HGB 13.8 g/dL (11.2-15.7); Immature Grans % 0.4; Lymphocytes % 33.4; MCH 28.3 pg (27.0-33.0); MCHC 32.2 % (32.0-36.0); MCV 87.9 fL (80-95); Monocytes % 9.3; Neutrophils % 53.5; Nucleated RBC 0 %; Platelet Count 361 10^3/uL (130-400); RBC 4.87 10^6/uL (3.93-5.22); RDW 13.3 % (11.7-14.6); RDW-SD 43.6 fL; WBC 7.28 10^3/uL (4.4-10.8)
[2021-10-09] MEDS: Normal Saline 1,000 ML 1000 ML IV (15:04)
[2021-10-09] MEDS: ACETAMINOPHEN 1,000 MG/100 ML BTL 400 MG IVPB (15:09)
[2021-10-09 15:32] LABS: BUN 17 mg/dL (7-18); CREATININE 0.8 mg/dL (0.55-1.02); Calcium 9.3 mg/dL (8.5-10.1); Glucose 108 mg/dL (74-106)
[2021-10-09 15:33] LABS: ALT 33 U/L (14-59); AST 20 U/L (15-37); Alkaline Phosphatase 69 U/L (46-116); Bilirubin, Total 0.3 mg/dL (0.2-1.0); Chloride 104 mmol/L (98-107); Potassium 4.2 mmol/L (3.5-5.1); Sodium 140 mmol/L (136-145); Total Protein 8.3 g/dL (6.4-8.2)
[2021-10-09 15:34] LABS: Lipase 202 U/L (73-393)
--- NOTE | 2021-10-09 15:41 | ED.GENADUL_ITS ---
Discharge Plan Disposition Patient Disposition: HOME Condition: Stable Discharge Details Clinical Impression: COVID-19, Flank pain Primary Care Provider: Donal Gordon ED Provider: Desmond John Home Meds and New Rx's Prescriptions: Continued sucralfate [Carafate] 1 gram tablet 1 g PO BID Qty: 28 RF: 0 omeprazole 40 mg capsule,delayed release(DR/EC) 40 mg PO DAILY Qty: 14 RF: 0 buspirone 5 mg tablet 5 mg PO BID PRN (Reason: anxiety) Qty: 90 RF: 0 Norel AD 4-10-325 mg tablet 1 tab PO Q4H PRN (Reason: cold symptoms) Qty: 14 RF: 0 fluticasone propionate 50 mcg/actuation spray,suspension 1 spray NS BID Qty: 3 RF: 4 budesonide-formoterol [Symbicort] 160-4.5 mcg/actuation HFA aerosol inhaler 2 puff Inhalation BID Qty: 3 RF: 4 omeprazole 20 mg capsule,delayed release(DR/EC) 20 mg PO DAILY Qty: 90 RF: 4 metoprolol succinate 50 mg tablet extended release 24 hr 50 mg PO DAILY Qty: 90 RF: 3 albuterol sulfate [ProAir HFA] 90 mcg/actuation HFA aerosol inhaler 2 puff Inhalation Q4H PRN (Reason: shortness of breath or wheezing) Qty: 8.5 RF: 6 acetaminophen [Tylenol Extra Strength] 500 mg Tablet 500 mg PO PRN PRNRF: 0 Discharge Instructions Instructions: Flank Pain (ED), COVID-19 (Coronavirus Disease 2019) (ED) Additional Instructions: Your CTA of your chest and your Covid test positive for Covid. [id number] Tylenol as directed for discomfort. As we discussed I recommend quarantining for at least 10 days, please contact your primary care provider in the meantime to discuss your symptoms, need for outpatient reevaluation, and to be cleared to return to normal activity. We discussed monoclonal antibodies today, but you have declined. You do have 10 days from time of initial symptoms to have the antibodies if you change your mind. Otherwise please watch for new or worsening symptoms and return to the ER for any concerns. I am giving you a pulse oximeter to watch your oxygen level, if it stays below 90 consistently please return immediately to the ER Discharge Data Discharge Date/Time-TO BE ENTERED AT DEPARTURE: 10/09/21 21:12 Medical Decision Making <ANDREA Ramsay - Last Filed: 10/10/21 08:28> Patient with diagnostic labs that do not show significant acute abnormality She is pending CT at the time of her flank. She has wanted Tylenol only for pain, denies opiate analgesia, urinalysis is clear without evidence of infection or hematuria Care will be signed out to Desmond John, pending CT scan <ANDREA Bocanegra - Last Filed: 10/09/21 21:14> I assumed care of this 56-year-old female from my colleague ANDREA Ratliff, please see her initial HPI and examination. At this time laboratories have been unremarkable, awaiting CT abdomen and pelvis for right flank pain that began Thursday. CT imaging reveals no acute abnormality of the abdomen or pelvis but concerning lung base for COVID-19. Patient was in room 10, she was moved into room 2, negative pressure room. I had a long discussion both with patient and her significant other regarding her CT findings. Patient states that she had Covid, along with the majority of her family, roughly 2-3 months ago. She was not vaccinated. She denies any fever, chest pain, shortness of breath. Patient initially does not want a Covid test or additional imaging, but I explained to her that given she recently had Covid, her lungs are concerning for Covid, and with her right flank pain, I am concerned for additional pneumonia, PE, pulmonary infarct, etc. patient is agreeable to a Covid swab now and a CTA of the chest Covid swab positive CTA negative for PE, consistent with COVID-19 Upon evaluation patient appears well, nontoxic, speaking in full sentences. I visualized her flank, without erythema, ecchymosis or rash. No signs of shingles. Laboratories unremarkable except for a positive Covid test. While this very well could be referred pain from her lungs, diaphragm irritation, etc., we discussed that I cannot be completely sure that her pain is secondary to be positive Covid test. However; there are no other clear explanations c urrently. Patient is comfortable with this and would like to be discharged. Given her history of asthma, she is considered high risk, and we discussed the pros and cons of monoclonal antibody infusion. Patient declines this but is aware she has a 10-day window from the initiation of her symptoms and she could return to the ER or contact her primary care provider if her decision is changed. She will be given a pulse ox to go home with to monitor her O2 levels. She will use [id number] Tylenol as directed for symptomatic control. Strict discharge and return precautions provided. Patient and family have no additional questions or concerns upon discharge. This documentation was generated using [employer] system, please disregard any oddities of phrase or misspellings. Imaging Data Radiologic Study: Attestation: I personally reviewed and interpreted this imaging study as follows: Imaging: CT Scan Radiologist's impression: PROCEDURE INFORMATION: Exam: CT Abdomen And Pelvis With Contrast Exam date and time: 10/09/2021 2:34 PM Age: 56 years old Clinical indication: Other: Right flank pain TECHNIQUE: Imaging protocol: Computed tomography of the abdomen and pelvis with contrast. Contrast material: OMNIPAQUE 350; Contrast volume: 85 ml; Contrast route: INTRAVENOUS (IV); COMPARISON: US PELVIS TRANSVAG 07/03/2015 4:43 PM FINDINGS: Lungs: Patchy bilateral ground-glass densities in a peripheral distribution suggestive of viral pneumonia. Liver: There is a diffuse decrease in hepatic parenchymal density, consistent with fatty infiltration. There are no focal liver lesions present. Gallbladder and bile ducts: Prior cholecystectomy. No ductal dilation. Pancreas: Normal. No ductal dilation. Spleen: Normal. No splenomegaly. Adrenal glands: Normal. No mass. Kidneys and ureters: Normal. No hydronephrosis. Stomach and bowel: The stomach and small bowel are normal.There is diverticular disease of the colon, without evidence of acute diverticulitis. No perforation, or abscess. No signs or history of bleeding provided. Appendix: No evidence of appendicitis. A normal appendix is identified. VIKI MCKEON Preliminary Radiology Report APPLICATION SOFTWARE ENGINEER (QA) DISCREPANCY? If there is a discrepancy between the preliminary and final interpretation, please notify [facility] via [email or web address]. If you do not have access to our QA portal, call our QA team at [phone] CONFIDENTIALITY STATEMENT This report is intended only for the use of the referring physician, and only in accordance with law, If you received this in error, call [phone] Page 2 of 2 Intraperitoneal space: Unremarkable. No free air. No significant fluid collection. Vasculature: Unremarkable. No abdominal aortic aneurysm. Lymph nodes: Unremarkable. No enlarged lymph nodes. Urinary bladder: Unremarkable as visualized. Reproductive: Unremarkable as visualized. Bones/joints: Degenerative changes of the spine without acute osseous abnormality. Soft tissues: There is a small fat-containing umbilical hernia. IMPRESSION: Findings suspicious for COVID-19 pneumonia.Clinical correlation recommended. No other acute abnormality. Radiologic Study #2: Attestation: I personally reviewed and interpreted this imaging study as follows: Imaging: CT Scan Radiologist's impression: PROCEDURE INFORMATION: Exam: CTA Chest With Contrast Exam date and time: 10/09/2021 7:05 PM Age: 56 years old Clinical indication: Other: ? Covid TECHNIQUE: Imaging protocol: Computed tomographic angiography of the chest with contrast. 3D rendering (Not supervised by radiologist): MIP and/or 3D reconstructed images were created by the technologist. COMPARISON: CR XR CHEST 2V PA LATERAL 07/06/2021 11:08 AM FINDINGS: Pulmonary arteries: Normal. No pulmonary emboli. Aorta: Unremarkable. No aortic aneurysm. No aortic dissection. Lungs: Patchy bilateral ground-glass densities in a peripheral distribution suggestive of viral pneumonia. Pleural spaces: Unremarkable. No pneumothorax. No pleural effusion. Heart: Unremarkable. No cardiomegaly. No pericardial effusion. Lymph nodes: Unremarkable. No enlarged lymph nodes. Gallbladder and bile ducts: There has been a cholecystectomy. Bones/joints: Unremarkable. No acute fracture. Soft tissues: Unremarkable. IMPRESSION: Findings suspicious for COVID-19 pneumonia. HPI <ANDREA Ramsay - Last Filed: 10/10/21 08:28> General Mode of arrival: ambulatory . Date/Time Provider Initiated Documentation: 10/09/21 13:37 . Limitations to Documentation: no limitations . Information obtained by: patient . HPI Narrative: This 56-year-old female with history of asthma and SVT presents with report of right flank pain. Denies any shortness of breath. Denies any fever or chills. States the pain is exacerbated with movement and burping to her flank region. Denies chest pain or fever or chills. Denies any shortness of breath. States she has a history of kidney infection before but this feels differently. Pain has been present since Thursday. Describes it as sharp. Denies any nausea or vomiting. Denies any fever or chills. Denies chance of . Denies hematuria or dysuria. Related Data Home Medications Medication Instructions Recorded Confirmed acetaminophen [Tylenol Extra 500 mg PO PRN PRN 10/08/18 08/19/21 Strength] fluticasone propionate 50 1 spray NS BID #3 ea 05/26/19 08/19/21 mcg/actuation nasal spray,suspension budesonide-formoterol HFA 160 2 puff INHALATION BID #3 each 03/11/21 08/19/21 mcg-4.5 mcg/actuation aerosol inhaler omeprazole 20 mg capsule,delayed 20 mg PO DAILY #90 tab-cap 03/27/21 08/19/21 release metoprolol succinate 50 mg 50 mg PO DAILY #90 tab 04/22/21 08/19/21 tablet,extended release 24 hr omeprazole 40 mg capsule,delayed 40 mg PO DAILY #14 cap 07/09/21 08/19/21 release sucralfate 1 gram tablet 1 g PO BID #28 tab 07/09/21 08/19/21 ProAir HFA 90 mcg/actuation 2 puff INHALATION Q4H PRN #8.5 gm 07/11/21 08/19/21 aerosol inhaler NS buspirone 5 mg tablet 5 mg PO BID PRN #90 tab 07/24/21 08/19/21 xap-pgjacxfzemgqh-xibzwbaoonmet 4 1 tab PO Q4H PRN #14 tab 08/19/21 08/19/21 mg-10 mg-325 mg tablet Previous Rx's Medication Instructions Recorded fluticasone propionate 50 1 spray NS BID #3 ea 05/26/19 mcg/actuation nasal spray,suspension budesonide-formoterol HFA 160 2 puff INHALATION BID #3 each 03/11/21 mcg-4.5 mcg/actuation aerosol inhaler omeprazole 20 mg capsule,delayed 20 mg PO DAILY #90 tab-cap 03/27/21 release metoprolol succinate 50 mg 50 mg PO DAILY #90 tab 04/22/21 tablet,extended release 24 hr omeprazole 40 mg capsule,delayed 40 mg PO DAILY #14 cap 07/09/21 release sucralfate 1 gram tablet 1 g PO BID #28 tab 07/09/21 ProAir HFA 90 mcg/actuation 2 puff INHALATION Q4H PRN #8.5 gm 07/11/21 aerosol inhaler NS buspirone 5 mg tablet 5 mg PO BID PRN #90 tab 07/24/21 wwy-gbmcyhgrrdqrn-roelvteioxlpt 4 1 tab PO Q4H PRN #14 tab 08/19/21 mg-10 mg-325 mg tablet Allergies Allergy/AdvReac Type Severity Reaction Status Date / Time aspirin Allergy Severe Anaphylaxsi Verified 08/19/21 10:53 s ketorolac Allergy Severe Anaphylaxsi Verified 08/19/21 10:53 s NSAIDS (Non-Steroidal Allergy Severe Anaphylaxsi Verified 08/19/21 10:53 Anti-Inflamma s montelukast sodium AdvReac Mild Migraines Verified 08/19/21 10:53 [From [facility]] General Stated Complaint: FlankPain KWAME: 3 Review of Systems <ANDREA Ramsay - Last Filed: 10/10/21 08:28> All systems reviewed & are unremarkable except as noted in HPI and below PFS <ANDREA Ramsay - Last Filed: 10/10/21 08:28> Medical History Asthma GERD (gastroesophageal reflux disease) MRSA (methicillin resistant staph aureus) culture positive (11/12/15) 11/26/15;[facility] Surgical History Bilateral salpingectomy with oophorectomy 11/28/15 DR. RAY Cholecystectomy (~2002) DEBRIDEMENT,SINUS 11/26/15; [facility] Endometrial Ablation Endometrial Biopsy (~2008) 2008 2010 H/O colonoscopy H/O colonoscopy (05/01/06) Dr Dias, negative, repeat in 10 years H/O colonoscopy (10/08/18) dr romero, no abnormalities, repeat 10 years Nasal sinus repair (~1993) Family History Mother Essential hypertension Depression Hyperlipidemia Father Diabetes Essential hypertension Heart disease Hyperlipidemia Sister Essential hypertension Depression Hyperlipidemia Sister Essential hypertension Personal history of malignant neoplasm UTERINE Depression Hyperlipidemia Sister Essential hypertension Hyperlipidemia Brother Essential hypertension Hyperlipidemia Asthma Grandfather Alzheimer disease Grandfather Diabetes Essential hypertension Heart disease Hyperlipidemia Asthma Grandmother Essential hypertension Personal history of malignant neoplasm UTERINE/BREAST Grandmother Diabetes Heart disease Hyperlipidemia Stroke Son Diabetes Essential hypertension Hyperlipidemia Son No problems noted. Sister Hyperlipidemia Brother Substance abuse Essential hypertension Hyperlipidemia Asthma Social History Smoking/Tobacco Use Status: Former Tobacco Use Quit Date: 11/30/07 Second Hand Exposure: Yes Smoking risk assessment performed?: Yes Alcohol Intake: current Alcohol Intake frequency: a few times a month Alcohol type: wine Drug use: Never Substance use type: does not use Caregiver/Support person: Yes Household members: spouse Communication Needs: None Do you need help understanding health information?: Rarely Pets and animals: Yes Pets and animals: dog(s) Sexually active: Yes Do you think of yourself as: straight/heterosexual Current gender identity: female What is your relationship status?: How often do you talk on the phone with friends or family?: once per week How often do you get together with friends or relatives?: never How often do you attend temple or yarsani services?: 1-3 times per year Do you belong to any clubs or organized social groups?: no Panel score (0-1 are the most socially isolated patients): 1 What type of physical activity do you participate in: walking Duration: 45-60 minutes/day Frequency: 5-6 times per week Karen/Buddhist: No preference Seatbelt use: always Helmet use: Yes Helmet use: always Drive intox or ride w/intox route driver salesperson: No Do you feel safe at home: Yes Do you feel safe in your relationship?: Yes Exam <ANDREA Ramsay - Last Filed: 10/10/21 08:28> Const General: cooperative, comfortable and no acute distress HENMT Mouth: oral mucosae normal Eyes Pupils: PERRL Chest Chest: normal inspection of the chest Resp Effort & Inspection: normal respiratory effort Auscultation: clear to auscultation bilaterally Cardio Rate: regular rate Rhythm: regular rhythm GI Inspection: normal to inspection Other: right cva tenderness , no abdominal bruit or pulsatile mass Skin General skin exam: no rashes or lesions noted Neuro General: patient alert and patient oriented x3 Extrem General: normal to inspection Other: Distal pulses intact. Psych Appearance: grossly normal Course <ANDREA Ramsay - Last Filed: 10/10/21 08:28> Vital Signs Vital signs: Vital Signs Temperature 36.6 C 10/09/21 13:23 Pulse 82 10/09/21 13:23 Respiratory Rate 16 10/09/21 13:23 Blood Pressure 136/90 10/09/21 13:23 Pulse Oximetry 98 10/09/21 13:23 Temperature 36.6 C 10/09/21 13:23 Temperature Source Skin 10/09/21 13:23 Pulse 82 10/09/21 13:23 Respiratory Rate 16 10/09/21 13:23 Respiratory Effort 10/09/21 13:28 Blood Pressure 136/90 10/09/21 13:23 Blood Pressure Position Sitting 10/09/21 13:23 Pulse Oximetry 98 10/09/21 13:23 Oxygen Delivery Method Room Air 10/09/21 13:23 Oxygen Flow Rate 0 10/09/21 13:23 Pain Level 10 10/09/21 13:23 Lab/Test Results Lab/Test Results: Laboratory Tests Range/Units 10/09/21 10/09/21 10/09/21 14:30 14:58 14:58 WBC (4.4-10.8) 10^3/uL 7.28 RBC (3.93-5.22) 10^6/uL 4.87 Hgb (11.2-15.7) g/dL 13.8 Hct (36.0-46.0) % 42.8 MCV (80-95) fL 87.9 MCH (27.0-33.0) pg 28.3 MCHC (32.0-36.0) % 32.2 RDW (11.7-14.6) % 13.3 Plt Count (130-400) 10^3/uL 361 MPV (8.0-11.0) fL 9.0 Immature Gran % 0.4 Neutrophils % 53.5 Lymphocytes % 33.4 Monocytes % 9.3 Eosinophils % 2.9 Basophils % 0.5 Nucleated RBC % % 0 Absolute Neutrophils (1.2-6.7) 10^3/uL 3.89 Absolute Lymphocytes (1.2-3.4) 10^3/uL 2.43 Absolute Monocytes (0.1-0.8) 10^3/uL 0.68 Absolute Eosinophils (0.0-0.7) 10^3/uL 0.21 Absolute Basophils (0.0-0.2) 10^3/uL 0.04 Sodium (136-145) mmol/L 140 Potassium (3.5-5.1) mmol/L 4.2 Chloride (98-107) mmol/L 104 Carbon Dioxide (21.0-32.0) mmol/L 31.0 Anion Gap (3-11) mmol/L 5.0 BUN (7-18) mg/dL 17 Creatinine (0.55-1.02) mg/dL 0.8 Estimated GFR/1.73 m2 (mL/min/1.73m2) >= 60.00 Glucose (74-106) mg/dL 108 H Calcium (8.5-10.1) mg/dL 9.3 Total Bilirubin (0.2-1.0) mg/dL 0.3 AST (15-37) U/L 20 ALT (14-59) U/L 33 Alkaline Phosphatase (46-116) U/L 69 Total Protein (6.4-8.2) g/dL 8.3 H Albumin (3.4-5.0) g/dL 4.0 Lipase (73-393) U/L 202 Urine Color (Yellow) Yellow Urine Clarity (Clear) Clear Urine pH (5-8) 5.5 Ur Specific [place] (1.005-1.025) 1.025 Urine Protein (Negative) mg/dL Negative Urine Ketones (Negative) mg/dL Negative Urine Blood (Negative) Negative Urine Nitrite (Negative) Negative Urine Bilirubin (Negative) Negative Urine Urobilinogen (Up TO 0.2) EU/dL 0.2 Ur Leukocyte Esterase (Negative) Negative Urine Glucose (Negative) mg/dL Negative POC- Test(urine) Negative Sign Out <ANDREA Ramsay - Last Filed: 10/10/21 08:28> Sign Out Data: Sign Out Comment: pending ct interpretation Last updated by Daphnie Ratliff PA at 10/09/21 16:08 PAWSS <ANDREA Ramsay - Last Filed: 10/10/21 08:28> Have you Been Recently Intoxicated or Drunk Within the Last 30 days?: No Have you Ever Experienced Previous Episodes of Alcohol Withdrawal?: No Have you ever Experienced Withdrawal Seizures?: No Have you ever Experienced Delirium Tremens(DT)s?: No Have you ever undergone Alcohol Rehabilitation Treatment (i.e, inpt ot outpatient treatment programs)?: No Have you ever Experienced Blackouts?: No Have you ever Combined Alcohol with other Downers within the last 90 days?: No Have you ever Combined Alcohol with any other Substance of Abuse during the last 90 days?: No Positive Blood Alcohol level on Presentation? [PCS.BAL]: No Evidence of Increased Autonomic Activity (i.e. HR>120, tremor, sweating, agitation, nausea)?: No Result: 0
[2021-10-09] MEDS: Normal Saline - Diluent 50 ML VIAL IV ×2 (17:20→20:12)
[2021-10-09] MEDS: Omnipaque 350 MG/ML 100 ML BTL IJ ×2 (17:22→20:12)
[2021-10-09] MEDS: Normal Saline Flush 10 ML SYR IVP (17:22)
--- NOTE | 2021-10-09 17:45 | DI.VRAD_ITS ---
PROCEDURE INFORMATION: Exam: CT Abdomen And Pelvis With Contrast Exam date and time: 10/09/2021 2:34 PM Age: 56 years old Clinical indication: Other: Right flank pain TECHNIQUE: Imaging protocol: Computed tomography of the abdomen and pelvis with contrast. Contrast material: OMNIPAQUE 350; Contrast volume: 85 ml; Contrast route: INTRAVENOUS (IV); COMPARISON: US PELVIS TRANSVAG 07/03/2015 4:43 PM FINDINGS: Lungs: Patchy bilateral ground-glass densities in a peripheral distribution suggestive of viral pneumonia. Liver: There is a diffuse decrease in hepatic parenchymal density, consistent with fatty infiltration. There are no focal liver lesions present. Gallbladder and bile ducts: Prior cholecystectomy. No ductal dilation. Pancreas: Normal. No ductal dilation. Spleen: Normal. No splenomegaly. Adrenal glands: Normal. No mass. Kidneys and ureters: Normal. No hydronephrosis. Stomach and bowel: The stomach and small bowel are normal.There is diverticular disease of the colon, without evidence of acute diverticulitis. No perforation, or abscess. No signs or history of bleeding provided. Appendix: No evidence of appendicitis. A normal appendix is identified. Intraperitoneal space: Unremarkable. No free air. No significant fluid collection. Vasculature: Unremarkable. No abdominal aortic aneurysm. Lymph nodes: Unremarkable. No enlarged lymph nodes. Urinary bladder: Unremarkable as visualized. Reproductive: Unremarkable as visualized. Bones/joints: Degenerative changes of the spine without acute osseous abnormality. Soft tissues: There is a small fat-containing umbilical hernia. IMPRESSION: Findings suspicious for COVID-19 pneumonia.Clinical correlation recommended. No other acute abnormality. Dictated and Authenticated by: Miracle Bryant MD. Ordering:SUBHA Eller MD
--- NOTE | 2021-10-09 19:00 | DI.CT_ITS ---
Exam(s) CT CHEST PE CTA EXAM: CT CHEST PE CTA CLINICAL HISTORY: ? covid on abd/pel ct. TECHNIQUE: Imaging Protocol: Axial CT angiography was performed with multi-slice acquisition and mu lti-planar and/or 3D reconstructions. CONTRAST MATERIAL: Intravenous: Omnipaque 350 Contrast volume:100 ml COMPARISON: CT CT ABDOMEN PELVIS W from 10/09/2021 FINDINGS: Pulmonary Arteries: No evidence of filling defect to suggest pulmonary emboli. Tracheobronchial tree: Patent where visualized. Mediastinum and Bea: No dominant adenopathy or fluid collection. Pulmonary parenchyma: Scattered bilateral ground-glass opacities, mainly peripheral consistent with v iral pneumonia. Findings are compatible with COVID-19 pneumonia. No focal consolidation. Atelectas is adjacent to left major fissure. Pleura: No effusion or pneumothorax. Heart: The heart is not dilated. No coronary artery calcifications are seen. Aorta: Thoracic aorta non-dilated. Upper abdomen: Unremarkable. Bones: Mild degenerative changes in the thoracic spine. IMPRESSION: No evidence of pulmonary embolism. Bilateral ground-glass infiltrates would be compatible with COVID-19 pneumonia. RADIATION DOSE DELIVERED: 452.26mGy.cm Total DLP DATA REPOSITORY: All CT scans at this facility are submitted to the National Radiology Data Registry (NRDR) Dose Index Registry (DIR) with the [employer] (ACR). RADIATION OPTIMIZATION: All CT scans at this facility use at least one of these dose optimization te chniques: automated exposure control; mA and/or kV adjustment per patient size (includes targeted exa ms where dose is matched to clinical indication); or iterative reconstruction.
[2021-10-09 19:18] LABS: Source Nasal/Nares
--- NOTE | 2021-10-09 20:11 | DI.VRAD_ITS ---
PROCEDURE INFORMATION: Exam: CTA Chest With Contrast Exam date and time: 10/09/2021 7:05 PM Age: 56 years old Clinical indication: Other: ? Covid TECHNIQUE: Imaging protocol: Computed tomographic angiography of the chest with contrast. 3D rendering (Not supervised by radiologist): MIP and/or 3D reconstructed images were created by the technologist. COMPARISON: CR XR CHEST 2V PA LATERAL 07/06/2021 11:08 AM FINDINGS: Pulmonary arteries: Normal. No pulmonary emboli. Aorta: Unremarkable. No aortic aneurysm. No aortic dissection. Lungs: Patchy bilateral ground-glass densities in a peripheral distribution suggestive of viral pneumonia. Pleural spaces: Unremarkable. No pneumothorax. No pleural effusion. Heart: Unremarkable. No cardiomegaly. No pericardial effusion. Lymph nodes: Unremarkable. No enlarged lymph nodes. Gallbladder and bile ducts: There has been a cholecystectomy. Bones/joints: Unremarkable. No acute fracture. Soft tissues: Unremarkable. IMPRESSION: Findings suspicious for COVID-19 pneumonia. Dictated and Authenticated by: Miracle Bryant MD. Ordering:ELIZABETH Logan MD
[2021-10-09 20:15] LABS: COVID-19 PCR POSITIVE (Negative)
[2021-10-09 20:59] VITALS: BP 118/73; PULSE 78; RESP 18; O2SAT 98
== END 2021-10-09 21:12 | disposition home or self-care (01) ==
PROVIDERS: Physician Assistant; Student in an Organized Health Care Education/Training Program; Emergency Provider Physician Assistant; PCP Nurse Practitioner Family
DX: U07.1 COVID-19 (principal); R10.9 Unspecified abdominal pain
CPT/HCPCS: 36415; 71275; 80053; 81025; 83690; 87635; 96361; 96374; 99285; 74177; 81003; 85025; 99284; J0131; J3490

== ENCOUNTER 2022-03-25 09:09 | Emergency (ER) | payer BC, SELFPAY ==
[2022-03-25] VITALS (7 sets, daily range): BP systolic 113–135; BP diastolic 71–85; PULSE 73–87; RESP 12–18; TEMP 36.1–37.2; O2SAT 91–96
--- NOTE | 2022-03-25 09:22 | ED.GENADUL_ITS ---
Discharge Plan Disposition Patient Disposition: HOME Condition: Improving Discharge Details Clinical Impression: Right-sided chest pain, Shoulder pain, right Primary Care Provider: Donal Gordon ED Provider: Desmond John Home Meds and New Rx's Prescriptions: New oxycodone-acetaminophen [Percocet] 5-325 mg tablet 1 tab PO TID PRNQty: 8 0RF Continued omeprazole 20 mg capsule,delayed release(DR/EC) 20 mg PO DAILY Qty: 90 4RF buspirone 5 mg tablet 5 mg PO BID PRN (Reason: anxiety) Qty: 90 3RF fluticasone propionate 50 mcg/actuation spray,suspension 1 spray NS BID Qty: 3 4RF Rx Instructions: 50MCG metoprolol succinate 50 mg tablet extended release 24 hr 50 mg PO DAILY Qty: 90 3RF albuterol sulfate [ProAir HFA] 90 mcg/actuation HFA aerosol inhaler 2 puff Inhalation Q4H PRN (Reason: shortness of breath or wheezing) Qty: 8.5 6RF budesonide-formoterol [Symbicort] 160-4.5 mcg/actuation HFA aerosol inhaler 2 puff Inhalation BID Qty: 3 4RF acetaminophen [Tylenol Extra Strength] 500 mg Tablet 500 mg PO PRN PRN0RF Discharge Instructions Instructions: Chest Pain (ED), Pleural Effusion (ED), Shoulder Pain (ED) Additional Instructions: Rapid cardiac rule out here in the ER including a CTA of your chest have all been unremarkable for any obvious emergent process. It does appear as though you have a small pleural effusion. Percocet as directed, this medication may cause drowsiness and/or constipation. You may want to take an ugrq-kwc-nhzichs stool softener while taking this medication. Percocet does have a component of Tylenol in it, you may take an additional yfys-ljh-mxrvnvr Tylenol but be sure not to exceed 4 g daily. Wear sling as needed, advance activity as tolerated. Cool and/or warm compresses every 2 hours for 20 minutes. Passive range of motion at least 4 times daily to avoid a frozen shoulder. Please watch for new or worsening symptoms and return to the ER for any concerns. I would like you to reach out both to your primary care provider and I have given you the name and number of our local orthopedic team to set up outpatient reassessment for both your chest pain, pleural effusion, and right shoulder pain. Referrals: Wiliam Hinkle MD [ [facility] STAFF PHYSICIAN] - Discharge Data Discharge Date/Time-TO BE ENTERED AT DEPARTURE: 03/25/22 14:20 Medical Decision Making This is a 57-year-old female, past medical history that includes asthma, GERD, occasionally smokes when stressed, reporting a right shoulder and chest wall injury that she sustained on when building a deck. 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 She states since that time she is occasional tingling in her right second and third digit as well as worsening pain with movement or attempting to push off to get up out of bed. She states that since there seems to be less pure shoulder pain and there is more right sided chest pain again worse with movem ent. She cannot take anti-inflammatories. She has been using Lidoderm patches as well as Tylenol. She describes the sensation as aching but did use the word tearing at one point. Clinically there does seems to be a musculoskeletal component but given the pain is now a right sided chest wall discomfort, seems to go through her back, reports a tearing sensation, and has a family history of early cardiac disease, I do believe a cardiac work-up is prudent including a chest CTA for further evaluation of potential aneurysm, dissection, PE, etc. Patient is agreeable to this plan and has no additional questions or concerns. Clinically she appears well, nontoxic. Will not provide any aspirin as she reports anaphylactic reaction. We will provide 2 mg IV morphine. Laboratory values are unremarkable for any obvious emergent process. Troponin is less than 50. Awaiting results of CTA. Patient reports moderate relief of discomfort with the IV morphine. CT imaging reveals no PE, thoracic aortic dissection or aneurysm. There is a tiny right pleural effusion and subjacent atelectasis. Discussed CT findings with patient. Patient is relieved. Reports that she believes she was told 1 time before that she had a small amount of fluid on her right lung. We discussed this will require outpatient primary care follow-up. Patient reports that the morphine is slowly wearing off. She also reports that her arm feels better held with her elbow in a near 90 degree angle, shoulder in adduction. Will provide her a sling and an additional dose of morphine. Patient is agreeable to awaiting delta troponin. Delta troponin remains less than 50. We once again discussed her benign work-up thus far, unremarkable delta troponin, the importance of outpatient follow-up through her primary care provider, referral to orthopedics for potential musculoskeletal injury, and I will provide short-term analgesia. Patient has no additional questions or concerns and is comfortable discharge at this time. Strict discharge and return precautions were provided. This documentation was generated using [employer] system, please disregard any oddities of phrase or misspellings. Medical Records Medical records reviewed: Yes I reviewed the patient's medical records. Imaging Data Radiologic Study: Attestation: I personally reviewed and interpreted this imaging study as follows: Imaging: CT Scan Radiologist's impression: Exam(s) CT CHEST PE CTA EXAM: CT CHEST PE CTA CLINICAL HISTORY: R sided chest pain, goes throught into back. TECHNIQUE: Imaging Protocol: Axial CT angiography was performed with multi- slice acquisition and multi-planar and/or 3D reconstructions. CONTRAST MATERIAL: Intravenous: Omnipaque 350 Contrast volume:100 mL COMPARISON: CT CT CHEST PE CTA from 10/09/2021 FINDINGS: Tracheobronchial tree: Patent where visualized. Pulmonary parenchyma: No consolidation or dominant measurable mass. No architectural distortion. Pulmonary Arteries: No evidence of filling defect to suggest pulmonary emboli. Mediastinum and Bea: No dominant adenopathy or fluid collection. The esophagus is unremarkable. Visualized thyroid gland: Unremarkable. Pleura: There is a tiny right pleural effusion and subjacent atelectasis. No left pleural effusion. No pneumothorax. Heart: The heart is not dilated. No coronary artery calcifications are seen. No pericardial effusion. Aorta: Thoracic aorta non-dilated. No evidence of dissection. Atherosclerosis. Upper abdomen: Status post cholecystectomy. Stable bile ducts. Soft tissues: Unremarkable. Bones: Within normal limits for the patient's age.Old healed right clavicular fracture. IMPRESSION: 1. No evidence of pulmonary embolism, thoracic aortic dissection or aneurysm. 2. Tiny right pleural effusion and subjacent atelectasis. 3. Results of this exam have been verbally communicated with provider. Lab Data Lab results reviewed: Yes I reviewed the patient's lab results. Labs: Laboratory Tests Range/Units 03/25/22 03/25/22 03/25/22 09:55 09:55 12:40 WBC (4.4-10.8) 10^3/uL 9.20 RBC (3.93-5.22) 10^6/uL 5.18 Hgb (11.2-15.7) g/dL 14.9 Hct (36.0-46.0) % 45.0 MCV (80-95) fL 86.9 MCH (27.0-33.0) pg 28.8 MCHC (32.0-36.0) % 33.1 RDW (11.7-14.6) % 13.6 Plt Count (130-400) 10^3/uL 353 MPV (8.0-11.0) fL 8.9 Immature Gran % 0.3 Neutrophils % 65.6 Lymphocytes % 21.5 Monocytes % 7.6 Eosinophils % 4.5 Basophils % 0.5 Nucleated RBC % (0.0-0.3) % 0.0 Absolute Neutrophils (1.2-6.7) 10^3/uL 6.03 Absolute Lymphocytes (1.2-3.4) 10^3/uL 1.98 Absolute Monocytes (0.1-0.8) 10^3/uL 0.70 Absolute Eosinophils (0.0-0.7) 10^3/uL 0.41 Absolute Basophils (0.0-0.2) 10^3/uL 0.05 Sodium (136-145) mmol/L 137 Potassium (3.5-5.1) mmol/L 4.1 Chloride (98-107) mmol/L 103 Carbon Dioxide (21.0-32.0) mmol/L 27.3 Anion Gap (3-11) mmol/L 6.7 BUN (7-18) mg/dL 13 Creatinine (0.55-1.02) mg/dL 0.6 Estimated GFR/1.73 m2 (mL/min/1.73m2) >= 60.00 Glucose (74-106) mg/dL 90 Calcium (8.5-10.1) mg/dL 9.3 Magnesium (1.8-2.4) mg/dL 2.1 Total Bilirubin (0.2-1.0) mg/dL 0.4 AST (15-37) U/L 26 ALT (14-59) U/L 40 Alkaline Phosphatase (46-116) U/L 93 Troponin I (<or=60) ng/L < 50 < 50 Total Protein (6.4-8.2) g/dL 8.5 H Albumin (3.4-5.0) g/dL 3.9 Lipase (73-393) U/L 128 ECG Data Attestation: I personally reviewed and interpreted this ECG (s) as follows: Interpretation: Please see official report by Dr. Mcdonnell. Sinus rhythm, ventricular rate 75, no STEMI HPI General Mode of arrival: ambulatory . Date/Time Provider Initiated Documentation: 03/25/22 09:20 . Limitations to Documentation: no limitations . Information obtained by: patient . HPI Narrative: This is a 57-year-old female, vblzy-pkef-crirnrno, past medical history of asthma, GERD, previous COVID-19 infection, reports irregular heartbeat, on metoprolol, family history of early cardiac disease, presents to the ER for right shoulder and right chest pain. Patient states that on she was building a deck, felt as though she injured her shoulder while lifting up a board. She states that occasionally she gets tingling in her second and third digit on the right side. She took bgqg-yxv-[id number] medication with little relief. She says now the pain is more across the right side of her chest and radiates through into her back, she put a Lidoderm patch across her right chest and right scapula. She states that movement in general makes the pain worse. She denies any recent illness, headache, neck pain, visual changes, left-sided chest pain, shortness of breath, abdominal pain, nausea, vomiting, change in bowel or bladder function, numbness or focal weakness. Related Data Home Medications Medication Instructions Recorded Confirmed acetaminophen 500 mg tablet 500 mg PO PRN PRN 10/08/18 03/25/22 (Tylenol Extra Strength) omeprazole 20 mg capsule,delayed 20 mg PO DAILY #90 tab-cap 03/27/21 03/25/22 release buspirone 5 mg tablet 5 mg PO BID PRN #90 tab 01/20/22 03/25/22 ProAir HFA 90 mcg/actuation 2 puff INHALATION Q4H PRN #8.5 gm 03/17/22 03/25/22 aerosol inhaler (albuterol sulfate) NS budesonide-formoterol HFA 160 2 puff INHALATION BID #3 each 03/17/22 03/25/22 mcg-4.5 mcg/actuation aerosol inhaler (Symbicort) fluticasone propionate 50 1 spray NS BID #3 ea 03/17/22 03/25/22 mcg/actuation nasal spray,suspension metoprolol succinate 50 mg 50 mg PO DAILY #90 tab 03/17/22 03/25/22 tablet,extended release 24 hr oxycodone-acetaminophen 5 mg-325 1 tab PO TID PRN #8 tab 03/25/22 mg tablet (Percocet) Previous Rx's Medication Instructions Recorded omeprazole 20 mg capsule,delayed 20 mg PO DAILY #90 tab-cap 03/27/21 release buspirone 5 mg tablet 5 mg PO BID PRN #90 tab 01/20/22 ProAir HFA 90 mcg/actuation 2 puff INHALATION Q4H PRN #8.5 gm 03/17/22 aerosol inhaler (albuterol sulfate) NS budesonide-formoterol HFA 160 2 puff INHALATION BID #3 each 03/17/22 mcg-4.5 mcg/actuation aerosol inhaler (Symbicort) fluticasone propionate 50 1 spray NS BID #3 ea 03/17/22 mcg/actuation nasal spray,suspension metoprolol succinate 50 mg 50 mg PO DAILY #90 tab 03/17/22 tablet,extended release 24 hr oxycodone-acetaminophen 5 mg-325 1 tab PO TID PRN #8 tab 03/25/22 mg tablet (Percocet) Allergies Allergy/AdvReac Type Severity Reaction Status Date / Time aspirin Allergy Severe Anaphylaxsi Verified 03/25/22 09:20 s ketorolac Allergy Severe Anaphylaxsi Verified 03/25/22 09:20 s NSAIDS (Non-Steroidal Allergy Severe Anaphylaxsi Verified 03/25/22 09:20 Anti-Inflamma s montelukast sodium AdvReac Mild Migraines Verified 03/25/22 09:20 [From Singulair] viscious green dragon Allergy Severe Uncoded 03/25/22 09:22 General Stated Complaint: Orthopedic KWAME: 3 Review of Systems Constitutional Constitutional: Denies fatigue, Denies fever(s), Denies headache(s) and Denies weakness Eyes Eyes: Denies change in vision ENT Ears, Nose, Mouth, and Throat: Denies headache(s) and Denies neck pain Cardiovascular Cardiovascular: Reports chest pain and Denies dyspnea Respiratory Respiratory: Denies cough and Denies dyspnea Gastrointestinal Gastrointestinal: Denies abdominal pain, Denies nausea and Denies vomiting Musculoskeletal Musculoskeletal: Reports back pain, Denies neck pain and Denies numbness Integumentary/Breasts Skin/Breast: Denies rash Neurologic Neurologic: Denies headache(s), Denies numbness and Denies weakness Endocrine Endocrine: Denies fatigue Hematologic/Lymphatic Hematologic/Lymphatic: Denies easy bleeding and Denies easy bruising [facility] All Active Problems (Updated 03/25/22 @ 13:23 by ANDREA Bocanegra) Right-sided chest pain (Acute) Shoulder pain, right (Acute) COVID-19 (Acute) Flank pain (Acute) Neck pain (Acute) Chest pain (Acute) Mild persistent asthma, uncomplicated (Chronic 09/24/15) Hyperlipidemia (Chronic) Gastroesophageal reflux disease (Chronic) Family history of premature CAD (Chronic 10/06/17) Father of [place] at age 52 Chronic pansinusitis (Chronic 12/03/15) Allergic rhinitis (Chronic) Medical History Asthma GERD (gastroesophageal reflux disease) MRSA (methicillin resistant staph aureus) culture positive (11/12/15) 11/26/15;[facility] Surgical History Bilateral salpingectomy with oophorectomy 11/28/15 DR. RAY Cholecystectomy (~2002) DEBRIDEMENT,SINUS 11/26/15; [facility] Endometrial Ablation Endometrial Biopsy (~2008) 2008 2010 H/O colonoscopy H/O colonoscopy (05/01/06) Dr Dias, negative, repeat in 10 years H/O colonoscopy (10/08/18) dr romero, no abnormalities, repeat 10 years Nasal sinus repair (~1993) Family History Mother Essential hypertension Depression Hyperlipidemia Father Diabetes Essential hypertension Heart disease Hyperlipidemia Sister Essential hypertension Depression Hyperlipidemia Sister Essential hypertension Personal history of malignant neoplasm UTERINE Depression Hyperlipidemia Sister Essential hypertension Hyperlipidemia Brother Essential hypertension Hyperlipidemia Asthma Grandfather Alzheimer disease Grandfather Diabetes Essential hypertension Heart disease Hyperlipidemia Asthma Grandmother Essential hypertension Personal history of malignant neoplasm UTERINE/BREAST Grandmother Diabetes Heart disease Hyperlipidemia Stroke Son Diabetes Essential hypertension Hyperlipidemia Son No problems noted. Sister Hyperlipidemia Brother Substance abuse Essential hypertension Hyperlipidemia Asthma Social History Smoking/Tobacco Use Status: Former Tobacco Use Quit Date: 11/30/07 Second Hand Exposure: Yes Smoking risk assessment performed?: Yes Drug use: Never Substance use type: does not use Caregiver/Support person: Yes Household members: spouse Communication Needs: None Do you need help understanding health information?: Rarely Pets and animals: Yes Pets and animals: dog(s) Sexually active: Yes Do you think of yourself as: straight/heterosexual Current gender identity: female What is your relationship status?: How often do you talk on the phone with friends or family?: once per week How often do you get together with friends or relatives?: never How often do you attend yarsani or yazidi services?: 1-3 times per year Do you belong to any clubs or organized social groups?: no Panel score (0-1 are the most socially isolated patients): 1 What type of physical activity do you participate in: walking Duration: 45-60 minutes/day Frequency: 5-6 times per week Karen/Cheondoism: No preference Seatbelt use: always Helmet use: Yes Helmet use: always Drive intox or ride w/intox salesperson driver: No Do you feel safe at home: Yes Do you feel safe in your relationship?: Yes Exam Const General: cooperative, healthy appearing, comfortable and no acute distress Orientation: alert, awake and oriented x3 HENMT Head: normal to inspection, normocephalic and atraumatic Face and sinus: normal facial exam Mouth: moist mucous membranes Eyes General: appearance normal, both eyes and all related structures Conjunctivae: conjunctivae normal Neck Neck: normal visual inspection, full ROM, no meningeal signs, trachea midline, supple and nontender Chest Chest: normal inspection of the chest and normal palpation of entire chest wall Resp Effort & Inspection: normal respiratory effort and able to speak in complete sentences Auscultation: clear to auscultation bilaterally Cardio Rate: regular rate Rhythm: regular rhythm GI Inspection: normal to inspection Palpation: soft, not firm, no guarding, no pulsatile masses and nontender Back/Spine/Pelvis Back: no CVA tenderness and No back tenderness Skin General skin exam: no rashes or lesions noted Neuro General: patient alert, patient awake, moves all extremities and no focal motor deficits Cognition: normal cognition Speech: speech normal Gait: normal gait Motor: muscle tone normal throughout, strength 5/5 throughout, no movement abnormalities noted and no fasciculations Sensory Exam: no sensory deficits noted Extrem General: normal to inspection, full ROM, capillary refill normal, no pedal edema and no calf tenderness Other: Patient with subjective deep pain of movement of her right shoulder. I am unable to reproduce the discomfort. Neuro, vascular, tendon intact Psych Appearance: grossly normal Mental Status: mental status grossly normal Course Vital Signs Vital signs: Vital Signs Temperature 37.2 C 03/25/22 09:13 Pulse 87 03/25/22 09:13 Respiratory Rate 16 03/25/22 09:13 Blood Pressure 132/85 03/25/22 09:13 Pulse Oximetry 95 03/25/22 09:13 Temperature 37.2 C 03/25/22 09:13 Temperature Source Skin 03/25/22 09:13 Pulse 87 03/25/22 09:13 Respiratory Rate 16 03/25/22 09:13 Respiratory Effort 03/25/22 09:13 Blood Pressure 132/85 03/25/22 09:13 Blood Pressure Position Sitting 03/25/22 09:13 Pulse Oximetry 95 03/25/22 09:13 Oxygen Delivery Method Room Air 03/25/22 09:13 Oxygen Flow Rate 0 03/25/22 09:13 Pain Level 4 03/25/22 09:13
--- NOTE | 2022-03-25 09:30 | RT.EKG_ITS ---
APPROVED REPORT Exam: Resting ECG Reason for Exam: R sided chest pain Patient Location: E HR:75 bpm ECG Measurements Heart Rate 75 AXIS MS 168 P 68 QRSd 79 QRS -1 QT 393 T 55 QTc 438 Conclusion Sinus rhythm. No ST elevation
--- NOTE | 2022-03-25 09:30 | DI.CT_ITS ---
Exam(s) CT CHEST PE CTA EXAM: CT CHEST PE CTA CLINICAL HISTORY: R sided chest pain, goes throught into back. TECHNIQUE: Imaging Protocol: Axial CT angiography was performed with multi-slice acquisition and mu lti-planar and/or 3D reconstructions. CONTRAST MATERIAL: Intravenous: Omnipaque 350 Contrast volume:100 mL COMPARISON: CT CT CHEST PE CTA from 10/09/2021 FINDINGS: Tracheobronchial tree: Patent where visualized. Pulmonary parenchyma: No consolidation or dominant measurable mass. No architectural distortion. Pulmonary Arteries: No evidence of filling defect to suggest pulmonary emboli. Mediastinum and Bea: No dominant adenopathy or fluid collection. The esophagus is unremarkable. Visualized thyroid gland: Unremarkable. Pleura: There is a tiny right pleural effusion and subjacent atelectasis. No left pleural effusion. No pneumothorax. Heart: The heart is not dilated. No coronary artery calcifications are seen. No pericardial effusion. Aorta: Thoracic aorta non-dilated. No evidence of dissection. Atherosclerosis. Upper abdomen: Status post cholecystectomy. Stable bile ducts. Soft tissues: Unremarkable. Bones: Within normal limits for the patient's age.Old healed right clavicular fracture. IMPRESSION: 1. No evidence of pulmonary embolism, thoracic aortic dissection or aneurysm. 2. Tiny right pleural effusion and subjacent atelectasis. 3. Results of this exam have been verbally communicated with provider. RADIATION DOSE DELIVERED: 412.92mGy.cm Total DLP DATA REPOSITORY: All CT scans at this facility are submitted to the National Radiology Data Registry (NRDR) Dose Index Registry (DIR) with the [employer] (A[employer]). RADIATION OPTIMIZATION: All CT scans at this facility use at least one of these dose optimization te chniques: automated exposure control; mA and/or kV adjustment per patient size (includes targeted exa ms where dose is matched to clinical indication); or iterative reconstruction.
[2022-03-25 10:00] LABS: Abs Immature Grans 0.03 10^3/uL (0.0-0.06); Absolute Basophil Count 0.05 10^3/uL (0.0-0.2); Absolute Eosinophil Count 0.41 10^3/uL (0.0-0.7); Absolute Lymphocyte Count 1.98 10^3/uL (1.2-3.4); Absolute Neutrophil Count 6.03 10^3/uL (1.2-6.7); Basophils % 0.5; Eosinophils % 4.5; HGB 14.9 g/dL (11.2-15.7); Immature Grans % 0.3; Lymphocytes % 21.5; MCH 28.8 pg (27.0-33.0); MCHC 33.1 % (32.0-36.0); MCV 86.9 fL (80-95); MPV 8.9 fL (8.0-11.0); Monocytes % 7.6; Neutrophils % 65.6; Platelet Count 353 10^3/uL (130-400); RBC 5.18 10^6/uL (3.93-5.22); RDW 13.6 % (11.7-14.6); RDW-SD 43.7 fL
[2022-03-25] MEDS: MORPHine 10 MG/ML VIAL 2 MG IVP ×2 (10:11→13:32)
[2022-03-25 10:16] LABS: ALT 40 U/L (14-59); AST 26 U/L (15-37); Albumin 3.9 g/dL (3.4-5.0); Alkaline Phosphatase 93 U/L (46-116); Anion Gap 6.7 mmol/L (3-11); BUN 13 mg/dL (7-18); Bilirubin, Total 0.4 mg/dL (0.2-1.0); CO2 27.3 mmol/L (21.0-32.0); CREATININE 0.6 mg/dL (0.55-1.02); Calcium 9.3 mg/dL (8.5-10.1); Chloride 103 mmol/L (98-107); Glucose 90 mg/dL (74-106); Lipase 128 U/L (73-393); Magnesium 2.1 mg/dL (1.8-2.4); Potassium 4.1 mmol/L (3.5-5.1); Sodium 137 mmol/L (136-145); Total Protein 8.5 g/dL (6.4-8.2); Troponin I < 50 ng/L (<or=60)
[2022-03-25] MEDS: Omnipaque 350 MG/ML 100 ML BTL IJ (10:54)
[2022-03-25 13:11] LABS: Troponin I < 50 ng/L (<or=60)
== END 2022-03-25 14:20 | disposition home or self-care (01) ==
PROVIDERS: Emergency Provider Physician Assistant; PCP Nurse Practitioner Family
DX: R07.89 Other chest pain (principal); M25.511 Pain in right shoulder
CPT/HCPCS: 36415; 71275; 80053; 83690; 93005; 96374; 96376; 99285; 83735; 84484; 85025; 93010; 99284; J2270; J3490

== ENCOUNTER 2022-04-08 08:55 | Outpatient (CLI) | payer BC, SELFPAY ==
--- NOTE | 2022-04-08 09:15 | DI.RAD_ITS ---
Exam(s) XR SHOULDER RT COMPLETE 2+V EXAM: XR SHOULDER RT COMPLETE 2+V CLINICAL HISTORY: injury. TECHNIQUE: 2D digital imaging was performed. COMPARISON: CR,XR XR CHEST 2V PA LATERAL from 07/06/2021 FINDINGS: 3 views There is no evidence of fracture or dislocation. No obvious degenerative changes in the glenohumeral and AC joints and the subacromial space is not diminished. There are also no calcifications in the subacromial space evident. Bone density is normal. No osseous lesions. There is, however, healed midshaft fracture site the ri ght clavicle evident. IMPRESSION: DATA REPOSITORY: RADIATION DOSE DELIVERED:
== END 2022-04-08 08:56 | disposition home or self-care (01) ==
LOC: DIORS 08:56
PROVIDERS: PCP Nurse Practitioner Family; Referring Provider Nurse Practitioner Family; Visit Provider Physician Assistant Surgical
DX: M25.511 Pain in right shoulder (principal)
CPT/HCPCS: 73030

== ENCOUNTER → 2022-11-18 08:26 | Outpatient (CLI) | payer BC, SELFPAY ==
--- NOTE | 2022-11-18 16:15 | DI.RAD_ITS ---
Exam(s) XR CHEST 2V PA LATERAL EXAM: XR CHEST 2V PA LATERAL CLINICAL HISTORY: asthma exacerbation, dyspnea, R06.00. TECHNIQUE: 2D digital imaging was performed. COMPARISON: CR,XR XR CHEST 2V PA LATERAL from 07/06/2021 FINDINGS: 2 views: Heart size is normal. The mediastinum is not widened. Lungs are clear. No infiltrates nor pleural effusions. IMPRESSION: No acute pulmonary findings. DATA REPOSITORY: RADIATION DOSE DELIVERED:
== END ==
PROVIDERS: PCP Nurse Practitioner Family; Visit Provider Nurse Practitioner Family
DX: R06.09 Other forms of dyspnea (principal); J45.901 Unspecified asthma with (acute) exacerbation
CPT/HCPCS: 71046

== ENCOUNTER 2023-03-19 11:02 | Outpatient (CLI) | payer BC, SELFPAY ==
--- NOTE | 2023-03-19 11:00 | RT.EKG_ITS ---
APPROVED REPORT Exam: Resting ECG Reason for Exam: Chest discomfort Patient Location: O HR:71 bpm ECG Measurements Heart Rate 71 AXIS UT 174 P 62 QRSd 85 QRS 27 QT 417 T 70 QTc 454 Conclusion Sinus rhythm...normal P axis, V-rate 50- 99 Normal Electrocardiogram
== END 2023-03-19 11:03 | disposition home or self-care (01) ==
LOC: DI.CM 11:03
PROVIDERS: PCP Nurse Practitioner Family; Visit Provider Nurse Practitioner Family
DX: R07.89 Other chest pain (principal); R53.83 Other fatigue
CPT/HCPCS: 93010

== ENCOUNTER 2023-03-26 02:08 | Outpatient (CLI) | payer BC, SELFPAY ==
[2023-03-26 10:32] LABS: Calculated LDL 236 mg/dL (<100); Cholesterol 329 mg/dL (<200); HDL Cholesterol 57 mg/dL (40-60); TSH (W/Ref FT4) 1.01 uIU/mL (0.36-3.74); Triglyceride 183 mg/dL (<150)
== END 2023-03-26 02:09 | disposition home or self-care (01) ==
LOC: LBO 02:08
PROVIDERS: PCP Nurse Practitioner Family; Visit Provider Nurse Practitioner Family
DX: Z13.220 Encounter for screening for lipoid disorders (principal); R53.83 Other fatigue
CPT/HCPCS: 36415; 80061; 84443

== ENCOUNTER 2023-05-11 01:43 | Outpatient (CLI) | payer BC, SELFPAY ==
--- NOTE | 2023-05-11 06:15 | ETT_ITS ---
APPROVED REPORT Exam: Exercise Treadmill Patient Location: Out-Patient Room/Bed: Stress Nurse: Maris Ojeda RN Ordering Provider:JOSE ANGEL AMAYA, Contact Number: [phone] BMI: 27.28 Baseline Rhythm: Sinus Rhythm Comment: Patient takes metoprolol, last dose was Thursday05/08/23 Indications: Chest pain Medical History Medical History: dyspnea, anxiety, chest pain, HLD, SVT, GERD, hx covid 19, asthma, allergies Cardiac Medications: Metoprolol Succinate, Buspirone, Albuterol sulfact, Omeprazole, Allergies: ASA, ketoralac, NSAIDS, montelukast sod. Cardiac Risk Factors: +family history, former smoker, +HLD, asthma Previous Cardiac Procedures: None Pretest Chest Pain Characteristics: None Exercise History: Indeterminate Physical Disabilities: None Lung Sounds: Clear/diminished, more diminished on right wiggins Heart Sounds: S1/S2, regular Stress Test Details Test: Exercise stress testing was performed using a Erik protocol. Rest Stress HR Resting HR Supine: 83 bpm Max Heart Rate (APMHR): 164 bpm Resting HR Standin bpm Target HR (85% APMHR): 139 bpm Max HR Achieved: 145 bpm % of APMHR: 88 Recovery HR: 94 bpm HR response to stress: Normal HR response to stress BP Resting BP Supine: 160/84 mmHg Resting BP Standin/86 mmHg Max BP: 202/80 mmHg Recovery BP: 148/86 mmHg BP response to stress: Normal blood pressure response to stress. ECG Resting ECG: Sinus Rhythm Ectopy: None Stress ECG: Sinus Tachycardia ST Change: Upsloping ST depression Lead(s): II, III, aVF Stage: [address] Deviation: 0 mm Arrhythmia: None Recovery ECG: Sinus Rhythm Recovery ST Change: Upsloping ST depression Lead(s): II, III, aVF Recovery ST Deviation: 0 mm Recovery Arrhythmia: None Comment: ST changes resolved within 1 minute of recovery Clinical Reason for Termination: Dyspnea, Chest pressure Stress Symptoms: Chest pain, Dyspnea, Dizziness Exercise duration: 4 min34 sec Highest Stage Reached: Stage 2: 2.5 mph at 12% grade. Exercise capacity: 6.52 METs Angina Score: Exercise-Limiting Martínez Treadmill Score: 0 Rate Pressure Product: [id number] Stress ECG Conclusion 1. The resting electrocardiogram was within normal limits 2. Patient exercised on the Erik protocol and completed a workload of 6.52 METS 3. Normal heart rate and blood pressure response to exercise. The patient achieved 88% of predicted heart rate for age 4. There was no electrocardiographic evidence of myocardial ischemia 5. There were no dysrhythmias Martínez Treadmill Score is 0 which is Moderate risk. Compared to the prior study dated , . Stress Test Summary STAGE Time (mins) Speed (mph) Grade (%) HR BP SpO2 SYMPTOMS METS Supine 83 160/84 Standing 94 138/86 1 3 1.7 10 130 190/90 4.5 2 6 2.5 12 136 92% chest pressure 6/10, dizziness 7 1 min recovery 120 202/80 sharp left sided chest pain, 8/10 3 min recovery 100 160/86 96% sharp left sided chest pain, 1-2/10 6 min recovery 90 148/86 throbbing in left neck 9 min recovery 94 Symptoms resolved and pt reports being at her baseline by 7 minutes re covery Alert and oriented female presented for stress test today. Reports she has had to use her inhaler tod ay as her asthma and allergies were acting up. Reports she has been having random chest pressure at h ome (5-6/10) that resolves on its own. Patient reported chest pressure in second stage of test and wa nted to stop. She felt dizzy and reported the chest pressure as 6/10. Accompanied to stretcher and re ported the chest pain became sharp (8/10) on her left side.When the area was palpated patient reporte d the pain increased. Palpated area as patient reported she does a lot of lifting because she cares f or her disabled son. By 3 minutes of recovery patient reported the chest discomfort was 1-2/10, left sided under her breast. Around 5 minutes into recovery she reported a throbbing in her left neck/ear. Within 7 minutes of recovery patient reported she felt at baseline. Vital signs stable and patient w as escorted to the waiting room and discharged.
== END 2023-05-11 02:03 ==
LOC: DI 01:43
PROVIDERS: PCP Nurse Practitioner Family; Visit Provider Nurse Practitioner Family
DX: R07.9 Chest pain, unspecified (principal)
CPT/HCPCS: 93017

== ENCOUNTER 2023-08-14 09:48 | Outpatient (REF) | payer OTHER, SELFPAY ==
--- NOTE | 2023-08-14 08:45 | PAPFT_PTH ---
PATIENT: Chanelle Raphael LOC: [facility] U#:[id number] AGE/SX: 58/F ROOM: RE08/14/[address]: Felisa Clement MD : [id number] BED: DIS: 08/14/2023 SPEC #: [id number] RECD: 08/14/23 12:54 STATUS: THOMAS RERicco #: [id number] CARLOS: 08/14/23 08:[address]: Felisa Clement DEPT: [facility] Cytology RECD BY: Daphnie Edwards ENTERED: 08/14/23 12:55 SP TYPE: PAPFT SUPRIYA DR: Donal Gordon, BOSSMAN Tissues: 1 - CX/ENDOCX FOR PAP SMEARS Procedures: PAP THIN PREP/[facility] Screening HPV DNA PROBE Comments: [id number]
== END 2023-08-14 09:49 | disposition home or self-care (01) ==
LOC: LBN 09:48
PROVIDERS: PCP Nurse Practitioner Family; Visit Provider Obstetrics & Gynecology
DX: Z12.4 Encounter for screening for malignant neoplasm of cervix (principal); Z11.51 Encounter for screening for human papillomavirus (HPV)
CPT/HCPCS: 88142; 87624

== ENCOUNTER → 2023-09-04 00:44 | Outpatient (CLI) | payer OTHER, SELFPAY ==
--- NOTE | 2023-09-04 12:45 | DI.MAMMO_ITS ---
Exam(s) MAMMO SCREENING EXAM: MAMMO SCREENING CLINICAL HISTORY: screening TECHNIQUE: Mammograms were interpreted according to the usual protocol including computer analysis w [employer] CAD system, tomosynthesis and C-view imaging. COMPARISON: 2013 through 2020 FINDINGS: The breasts are composed of mainly fatty density , Breast Density category A. No suspicious masses or suspicious microcalcifications are seen. No skin thickening or abnormal axillary lymph nodes are seen. There has been no significant change from prior exams. IMPRESSION: BI-RADS Category 1, Negative mammogram Yearly screening mammography is recommended. Breast Density - Category A, fatty density. A negative radiographic report should not delay biopsy if a dominant or clinically suspicious mass is present. Up to ten percent of cancers are not identified on mammography. A negative report may reinforce clinical impression. Adenosis and dense breasts may obscure an underlying neoplasm. False positive reports average 6 to 10%. Patient will receive a letter notifying them of these results.
== END ==
PROVIDERS: PCP Nurse Practitioner Family; Visit Provider Obstetrics & Gynecology
DX: Z12.31 Encounter for screening mammogram for malignant neoplasm of breast (principal)
CPT/HCPCS: 77063; 77067

== ENCOUNTER 2023-10-19 10:17 | Outpatient (REF) | payer OTHER, SELFPAY | END 2023-10-19 10:18 | LOC: NCHCN 10:17 | PROVIDERS: PCP Nurse Practitioner Family; Visit Provider Physician Assistant | DX: J02.9 Acute pharyngitis, unspecified (principal) | CPT/HCPCS: 87070 ==

== ENCOUNTER 2024-06-06 03:33 | Outpatient (CLI) | payer OTHER, SELFPAY ==
[2024-06-06] MEDS: Levalbuterol HFA 15 GM INH 4 PUFF IH (09:23)
[2024-06-06] MEDS: Inhaler, Assist Device 1 EACH MC (09:24)
--- NOTE | 2024-06-07 14:52 | W.PFT ---
Date of service: 06/06/24 Time of Service: 08:05 Pulmonary Function Test Result Requesting Provider Donal Gordon Indications: DAWN Interpretation Spirometry: abnormal w/ decreased FEV1/FVC, FEV1 and FVC Lung Volumes: normal lung volumes w/ air trapping Diffusion Capacity: normal diffusion Impression Moderate obstructive ventilatory defect w/ significant reversibility. Normal lung volumes w/ mild air trapping Normal diffusion. Flow volume curve suggests obstruction. Clinical Correlation therefore is recommended.
== END 2024-06-06 03:34 | disposition home or self-care (01) ==
LOC: RT 03:34
PROVIDERS: PCP Nurse Practitioner Family; Visit Provider Nurse Practitioner Family
DX: R06.00 Dyspnea, unspecified (principal); J44.9 Chronic obstructive pulmonary disease, unspecified
CPT/HCPCS: 00123; 94060; 94726; 94729

== ENCOUNTER 2024-07-12 21:15 | Outpatient (REF) | payer OTHER, SELFPAY ==
[2024-07-12 10:37] LABS: Abs Immature Grans 0.03 10^3/uL (0.0-0.06); Absolute Basophil Count 0.05 10^3/uL (0.0-0.2); Absolute Eosinophil Count 0.53 10^3/uL (0.0-0.7); Absolute Lymphocyte Count 2.31 10^3/uL (1.2-3.4); Absolute Monocyte Count 0.69 10^3/uL (0.1-0.8); Absolute Neutrophil Count 3.31 10^3/uL (1.2-6.7); Basophils % 0.7 %; Eosinophils % 7.7 %; HCT 45.9 % (36.0-46.0); HGB 15.2 g/dL (11.2-15.7); Immature Grans % 0.4 %; Lymphocytes % 33.4 %; MCHC 33.1 % (32.0-36.0); MCV 88 fL (80-95); MPV 9.3 fL (8.0-11.0); Neutrophils % 47.8 %; Platelet Count 360 10^3/uL (130-400); RBC 5.24 10^6/uL (3.93-5.22); RDW 12.7 % (11.7-14.6); RDW-SD 40.1 fL; WBC 6.92 10^3/uL (4.4-10.8)
[2024-07-13 11:10] LABS: IgE 92 IU/mL (<158)
== END 2024-07-12 21:16 | disposition home or self-care (01) ==
LOC: LBN 21:15
PROVIDERS: PCP Nurse Practitioner Family; Visit Provider Physician Assistant Surgical
DX: J44.9 Chronic obstructive pulmonary disease, unspecified (principal)
CPT/HCPCS: 82785; 85025

== ENCOUNTER 2024-08-05 09:04 | Outpatient (CLI) | payer OTHER, SELFPAY ==
[2024-08-10 13:39] LABS: Alternaria Tenuis IgE <0.10 kU/L (<0.70); Aspergillus Fumigatus IgE <0.10 kU/L (<0.70); Bermuda Grass IgE 0.38 kU/L (<0.70); Cockroach IgE <0.10 kU/L (<0.70); D Farinae IgE 0.19 kU/L (<0.70); D Pteronyssinus IgE 0.19 kU/L (<0.70); Eastern Sycamore IgE <0.10 kU/L (<0.70); Elm IgE <0.10 kU/L (<0.70); Epicoccum purpurascens IgE <0.10 kU/L (<0.70); Fusarium moniliforme, IgE <0.10 kU/L (<0.70); Giant Ragweed IgE <0.10 kU/L (<0.70); Lamb's Quarter IgE <0.10 kU/L (<0.70); Oak IgE <0.10 kU/L (<0.70); Penicillium chrysogenum IgE <0.10 kU/L (<0.70); Red Sorrel IgE <0.10 kU/L (<0.70); Rough Pigweed IgE <0.10 kU/L (<0.70); Short Ragweed IgE <0.10 kU/L (<0.70); Silver Birch IgE <0.10 kU/L (<0.70); Stemphyllium IgE <0.10 kU/L (<0.70); Timothy Grass IgE <0.10 kU/L (<0.70); Walnut Tree IgE <0.10 kU/L (<0.70)
[2024-08-10 14:10] LABS: Cocklebur IgE <0.10 kU/L (<0.70); Wormwood IgE <0.10 kU/L (<0.70)
[2024-08-11 14:08] LABS: Cat Epithelium IgE <0.10 kU/L (<0.70); Cladosporium IgE <0.10 kU/L (<0.70); Dog Dander IgE <0.10 kU/L (<0.70)
[2024-08-12 13:42] LABS: CLASS 0; Cedar Red IgE <0.10 kU/L (<0.35); Rhodotorula IgE <0.35 kU/L (<0.35)
== END 2024-08-05 09:05 | disposition home or self-care (01) ==
LOC: LBO 09:04
PROVIDERS: PCP Nurse Practitioner Family; Visit Provider Physician Assistant
DX: J45.909 Unspecified asthma, uncomplicated (principal); J33.9 Nasal polyp, unspecified; J32.4 Chronic pansinusitis; J30.1 Allergic rhinitis due to pollen
CPT/HCPCS: 36415; 86003

== ENCOUNTER 2024-11-30 08:24 | Emergency (ER) | payer OTHER, SELFPAY ==
[2024-11-30] VITALS (18 sets, daily range): BP systolic 127–180; BP diastolic 65–106; PULSE 71–85; RESP 13–27; TEMP 36.5; O2SAT 90–99
--- NOTE | 2024-11-30 08:30 | RT.EKG_ITS ---
APPROVED REPORT Exam: Resting ECG Reason for Exam: chest pain Patient Location: E HR:80 bpm ECG Measurements Heart Rate 80 AXIS MA 165 P 46 QRSd 81 QRS -11 QT 396 T 61 QTc 457 Conclusion Sinus rhythm...normal P axis, V-rate 60- 99 Low voltage, precordial leads...precordial leads <1.0mV Physician: no stemi I have reviewed and interpreted ECG and agree with software generated interpretation.
--- NOTE | 2024-11-30 08:45 | DI.CT_ITS ---
Exam(s) CT HEAD WO EXAM: CT HEAD WO CLINICAL HISTORY: headache, hypertension. TECHNIQUE: Imaging Protocol: Axial computed tomography images with coronal and sagittal reformatted images were created and reviewed COMPARISON: No exams were available for comparison FINDINGS: There are no skull fractures. Again noted is evidence of previous endoscopic sinus surgery. There is mucosal thickening in the partially visualized maxillary sinuses and complete opacification of the f rontal and sphenoid sinuses, as was previously evident in 2017. Probably related to polyposis. Mast oid air cells are clear. There is no evidence of intracranial hemorrhage, mass effect, or shift of midline structures. There are no extra-axial fluid collections. The ventricles are not enlarged or shifted and there is no blo od within the ventricular system nor within the basal cisterns. IMPRESSION: No acute intracranial findings on this noninfused CT scan of the brain. Extensive paranasal sinus disease, as was also evident on CT scan of 2017. Report called by myself to ER provider 11/30/2024 at 10:45 a.m. RADIATION DOSE DELIVERED: 858.97mGy.cm Total DLP DATA REPOSITORY: All CT scans at this facility are submitted to the National Radiology Data Registry (NRDR) Dose Index Registry (DIR) with the [employer] (A[employer]). RADIATION OPTIMIZATION: All CT scans at this facility use at least one of these dose optimization te chniques: automated exposure control; mA and/or kV adjustment per patient size (includes targeted exa ms where dose is matched to clinical indication); or iterative reconstruction.
[2024-11-30 09:00] LABS: Basophils % 0.6 %; Eosinophils % 3.5 %; HCT 43.8 % (36.0-46.0); HGB 14.5 g/dL (11.2-15.7); Lymphocytes % 23.1 %; MCH 28.5 pg (27.0-33.0); MCHC 33.1 % (32.0-36.0); MCV 86 fL (80-95); MPV 9.1 fL (8.0-11.0); Monocytes % 10.4 %; Platelet Count 322 10^3/uL (130-400); RBC 5.08 10^6/uL (3.93-5.22); RDW 13.1 % (11.7-14.6)
[2024-11-30 09:01] LABS: Abs Immature Grans 0.03 10^3/uL (0.0-0.06); Absolute Basophil Count 0.05 10^3/uL (0.0-0.2); Absolute Eosinophil Count 0.28 10^3/uL (0.0-0.7); Absolute Lymphocyte Count 1.85 10^3/uL (1.2-3.4); Absolute Monocyte Count 0.83 10^3/uL (0.1-0.8); Absolute Neutrophil Count 4.96 10^3/uL (1.2-6.7); Immature Grans % 0.4 %
[2024-11-30 09:17] LABS: ALT 41 U/L (14-59); AST 32 U/L (15-37); Albumin 4.1 g/dL (3.4-5.0); Alkaline Phosphatase 82 U/L (46-116); BUN 12 mg/dL (7-18); Bilirubin, Total 0.49 mg/dL (0.2-1.0); CREATININE 0.8 mg/dL (0.55-1.02); Calcium 9.9 mg/dL (8.5-10.1); Chloride 102 mmol/L (98-107); Estimated GFR 85.89 (mL/min/1.73m2); Glucose 102 mg/dL (74-106); Potassium 3.7 mmol/L (3.5-5.1); Sodium 142 mmol/L (136-145); Total Protein 8.5 g/dL (6.4-8.2)
[2024-11-30 09:25] LABS: TSH (W/Ref FT4) 1.73 uIU/mL (0.36-3.74)
[2024-11-30 09:26] LABS: Troponin I < 4 ng/L (<or=51)
[2024-11-30 09:26] LABS: Bilirubin Negative (Negative); Blood Negative (Negative); Clarity Clear (Clear); Glucose Negative (Negative); Ketones Negative (Negative); Leukocyte Esterase Small (Negative); Nitrite Negative (Negative); Specific Gravity <= 1.005 (1.005-1.025); Urobilinogen 0.2 mg/dL (Up to 0.2)
[2024-11-30] MEDS: Dexamethasone 10 MG/ML VIAL 6 MG IVP (09:32)
[2024-11-30] MEDS: diphenhydrAMINE 50 MG/ML VIAL 25 MG IVP (09:33)
[2024-11-30] MEDS: Metoclopramide 10 MG/2 ML VIAL IVP (09:34)
[2024-11-30] MEDS: SUMAtriptan 25 MG TAB PO (09:34)
[2024-11-30 09:36] LABS: Bacteria Few HPF (Negative); C & S Indicated? Yes; Casts Negative LPF (Negative); Crystals Negative HPF (Negative); Epithelial Cells Few HPF (Negative); Mucus Negative (Negative); Other Cells Rare Transitional (Negative); RBC 0-2 HPF (0-2)
--- NOTE | 2024-11-30 09:45 | ED.GENADUL_ITS ---
Discharge Plan Disposition Patient Disposition: Home Condition: Stable Discharge Details Clinical Impression: Headache Primary Care Provider: Donal Gordon ED Provider: Rikki Fragoso Home Meds and New Rx's Prescriptions: Continued epinephrine 0.3 mg/0.3 mL auto-injector 0.3 ml IM Q5-15M PRN (Reason: hypersensitivity reaction) Qty: 2 4RF Dupixent Pen 300 mg/2 mL pen injector 300 mg subcut Q2W Qty: 4 11RF fexofenadine [Katie Allergy] 180 mg tablet 180 mg PO DAILY clotrimazole 10 mg raquel 10 mg mucous membrane TID Qty: 90 4RF nystatin 100,000 unit/mL suspension 1 ml buccal DAILY Qty: 200 0RF Rx Instructions: administer 1/2 of dose in each side of the mouth fluticasone propionate 50 mcg/actuation spray,suspension 1 spray NS BID Qty: 3 4RF Rx Instructions: 50MCG metoprolol succinate 50 mg tablet extended release 24 hr 50 mg PO DAILY Qty: 90 3RF simvastatin 10 mg tablet 10 mg PO QHS Qty: 90 3RF albuterol sulfate 90 mcg/actuation HFA aerosol inhaler 2 puff inhalation Q6H PRN (Reason: shortness of breath or wheezing) Qty: 25.5 3RF albuterol sulfate 2.5 mg /3 mL (0.083 %) solution for nebulization 2.5 mg inhalation TID Qty: 75 3RF budesonide-formoterol 160-4.5 mcg/actuation HFA aerosol inhaler 2 puff inhalation BID Qty: 10.2 4RF acetaminophen [Tylenol Extra Strength] 500 mg Tablet 500 mg PO PRN PRN No Action buspirone 10 mg tablet 10 mg PO BID Qty: 180 3RF omeprazole 40 mg capsule,delayed release(DR/EC) 40 mg PO DAILY Qty: 90 3RF Discharge Instructions Instructions: Headache, Adult ED Additional Instructions: You were seen in the emergency department for your headache associated with possible high blood pressure. You have had some high readings but your workup for hypertension shows no intracranial bleeding, no organ damage from high blood pressure, please keep a journal of your blood pressures at home, talk to your primary care provider should you have consistent high readings he may need a medication added to your regimen in addition to your metoprolol. I think your headache is due to stress which is very understandable given the circumstances. Please try to take regular dose of Tylenol take some time to perform self-care and destress. Please return to the emergency department for significant severe sudden onset headaches, chest pain, any other emergent concerns, please follow-up with an eye doctor if desired for your transient floaters. Referrals: [facility] [Outside] Donal Gordon NP [Primary Care Provider] - Discharge Data Discharge Date/Time-TO BE ENTERED AT DEPARTURE: 11/30/24 10:27 HPI General Date/Time Provider Initiated Documentation: 11/30/24 08:33 . HPI Narrative: 59 year-old female presents to ED today by POV/ambulating with her with a chief complaint of headache, noted high blood pressure at home, under a lot of stress lately caring for her son and grandchildren with onset over the past couple days. Quality described as posterior headache, pinching in chest and L arm, no radiation to syncope, vision loss, vomiting, flank pain, urinary retention, shortness of breath, recent URI symptoms. Severity is described as moderate. Palliating factors include nothing specific attempted. Provoking factors include nothing specific. Patient not anticoagulated. Related Data Home Medications ?Medication ?Instructions ?Recorded ?Confirmed acetaminophen 500 mg tablet 500 mg PO PRN PRN 10/08/18 12/02/24 (Tylenol Extra Strength) epinephrine 0.3 mg/0.3 mL 0.3 ml IM Q5-15M PRN 11/21/22 12/02/24 injection, auto-injector hypersensitivity reaction #2 ea fluticasone propionate 50 1 spray NS BID #3 ea 03/18/24 12/02/24 mcg/actuation nasal spray,suspension metoprolol succinate 50 mg 50 mg PO DAILY #90 tabs 03/18/24 12/02/24 tablet,extended release 24 hr simvastatin 10 mg tablet 10 mg PO QHS #90 tabs 03/18/24 12/02/24 clotrimazole 10 mg raquel 10 mg mucous membrane TID #90 tabs 07/12/24 12/02/24 nystatin 100,000 unit/mL oral 1 ml buccal DAILY #200 mL 07/12/24 12/02/24 suspension dupilumab 300 mg/2 mL subcutaneous 300 mg (2 mL) subcut Q2W #4 mL 08/16/24 12/02/24 pen injector (Dupixent) albuterol sulfate 2.5 mg/3 mL 2.5 mg (3 mL) inhalation TID #75 mL 09/05/24 12/02/24 (0.083 %) solution for nebulization albuterol sulfate 90 mcg/actuation 2 puff inhalation Q6H PRN 09/05/24 12/02/24 aerosol inhaler shortness of breath or wheezing #25.5 grams fexofenadine 180 mg tablet 180 mg PO DAILY 10/13/24 12/02/24 (Katie Allergy) budesonide-formoterol HFA 160 2 puff inhalation BID #10.2 grams 10/31/24 12/02/24 mcg-4.5 mcg/actuation aerosol inhaler buspirone 10 mg tablet 10 mg PO BID #180 tabs 12/02/24 12/02/24 omeprazole 40 mg capsule,delayed 40 mg PO DAILY #90 tab-caps 12/02/24 12/02/24 release Previous Rx's ?Medication ?Instructions ?Recorded epinephrine 0.3 mg/0.3 mL 0.3 ml IM Q5-15M PRN 11/21/22 injection, auto-injector hypersensitivity reaction #2 ea fluticasone propionate 50 1 spray NS BID #3 ea 03/18/24 mcg/actuation nasal spray,suspension metoprolol succinate 50 mg 50 mg PO DAILY #90 tabs 03/18/24 tablet,extended release 24 hr simvastatin 10 mg tablet 10 mg PO QHS #90 tabs 03/18/24 clotrimazole 10 mg raquel 10 mg mucous membrane TID #90 tabs 07/12/24 nystatin 100,000 unit/mL oral 1 ml buccal DAILY #200 mL 07/12/24 suspension dupilumab 300 mg/2 mL subcutaneous 300 mg (2 mL) subcut Q2W #4 mL 08/16/24 pen injector (DupixEco-Vacay) albuterol sulfate 2.5 mg/3 mL 2.5 mg (3 mL) inhalation TID #75 mL 09/05/24 (0.083 %) solution for nebulization albuterol sulfate 90 mcg/actuation 2 puff inhalation Q6H PRN 09/05/24 aerosol inhaler shortness of breath or wheezing #25.5 grams budesonide-formoterol HFA 160 2 puff inhalation BID #10.2 grams 10/31/24 mcg-4.5 mcg/actuation aerosol inhaler buspirone 10 mg tablet 10 mg PO BID #180 tabs 12/02/24 omeprazole 40 mg capsule,delayed 40 mg PO DAILY #90 tab-caps 12/02/24 release Allergies Allergy/AdvReac Type Severity Reaction Status Date / Time aspirin Allergy Severe Anaphylaxsi Verified 12/02/24 13:50 s ketorolac Allergy Severe Anaphylaxsi Verified 12/02/24 13:50 s NSAIDS (Non-Steroidal Allergy Severe Anaphylaxsi Verified 12/02/24 13:50 Anti-Inflamma s montelukast sodium (From AdvReac Mild Migraines Verified 12/02/24 13:50 Singulair) viscious green dragon Allergy Severe unknown Uncoded 12/02/24 13:50 General Stated Complaint: Chest Pain KWAME: 3 Review of Systems All systems reviewed & are unremarkable except as noted in HPI and below Exam Narrative Exam Narrative: GENERAL APPEARANCE: Well-nourished, non-toxic, awake and alert, atraumatic, no acute distress. SKIN: Warm, pink, dry, intact, without rashes/lesions/ulcerations. HEAD: Normocephalic, atraumatic, normal hair distribution for gender/age. EYES: Normal conjunctiva, no exudates on lids/lashes, vision grossly normal, visual wiggins intact ENT: Nares patent, no circumoral cyanosis, no facial swelling NECK: Supple, trachea midline, painless cervical ROM. LUNGS/CHEST: Lungs CTA bilaterally, non-labored respirations, normal A/P diameter, symmetrical expansion, no chest wall deformity HEART (CV/PV): Regular rate and rhythm without murmur, no peripheral edema, no JVD. ABDOMEN: Soft, non-distended, no guarding, no CVA tenderness to percussion. MSK: Normal ROM, no swelling/deformity to bilateral UEs or LEs, moving all extremities without weakness, no cyanosis, spine midline without tenderness, normal curvature. NEURO: Mental Status AAOx4 - alert to person, place, time, events No facial droop, no forehead involvement. Motor: No focal weakness - strength 5/5 in bilateral UEs and LEs, proximal and distal, symmetric. Sensory: sensation intact to light touch globally. Gait normal: patient ambulated without ataxia into ED room. PSYCH: euthymic, cooperative, pleasant, appropriate speech Course Vital Signs Vital signs: Vital Signs Temperature 36.5 C 11/30/24 08:31 Pulse 85 11/30/24 08:31 Respiratory Rate 19 11/30/24 08:31 Blood Pressure 180/106 H 11/30/24 08:31 Pulse Oximetry 95 11/30/24 08:31 Temperature 36.5 C 11/30/24 08:31 Temperature Source Oral 11/30/24 08:31 Pulse 85 11/30/24 08:31 Pulse 82 11/30/24 08:40 Respiratory Rate 13 11/30/24 08:40 Respiratory Effort Normal, Non-Labored 11/30/24 08:38 Respiratory Depth Normal 11/30/24 08:38 Respiratory Pattern Normal 11/30/24 08:38 Blood Pressure 180/106 H 11/30/24 08:31 Blood Pressure Position Supine 11/30/24 08:31 Pulse Oximetry 95 11/30/24 08:40 Oxygen Delivery Method Room Air 11/30/24 08:31 Oxygen Flow Rate 0 11/30/24 08:31 Pain Level 5 11/30/24 09:34 Lab/Test Results Lab/Test Results: 11/30/24 09:15 Urine - Reflex from Ua Urine Culture - Pending Laboratory Tests Range/Units 11/30/24 11/30/24 08:36 09:15 WBC (4.4-10.8) 10^3/uL 8.00 RBC (3.93-5.22) 10^6/uL 5.08 Hgb (11.2-15.7) g/dL 14.5 Hct (36.0-46.0) % 43.8 MCV (80-95) fL 86 MCH (27.0-33.0) pg 28.5 MCHC (32.0-36.0) % 33.1 RDW (11.7-14.6) % 13.1 Plt Count (130-400) 10^3/uL 322 MPV (8.0-11.0) fL 9.1 Immature Gran % % 0.4 Neutrophils % % 62.0 Lymphocytes % % 23.1 Monocytes % % 10.4 Eosinophils % % 3.5 Basophils % % 0.6 Nucleated RBC % (0.0-0.3) % 0.0 Absolute Neutrophils (1.2-6.7) 10^3/uL 4.96 Absolute Lymphocytes (1.2-3.4) 10^3/uL 1.85 Absolute Monocytes (0.1-0.8) 10^3/uL 0.83 H Absolute Eosinophils (0.0-0.7) 10^3/uL 0.28 Absolute Basophils (0.0-0.2) 10^3/uL 0.05 Sodium (136-145) mmol/L 142 Potassium (3.5-5.1) mmol/L 3.7 Chloride (98-107) mmol/L 102 Carbon Dioxide (21.0-32.0) mmol/L 30.0 Anion Gap (3-11) mmol/L 10.0 BUN (7-18) mg/dL 12 Creatinine (0.55-1.02) mg/dL 0.8 Est GFR (CKD-EPI 2020) (mL/min/1.73m2) 85.89 Glucose (74-106) mg/dL 102 Calcium (8.5-10.1) mg/dL 9.9 Total Bilirubin (0.2-1.0) mg/dL 0.49 AST (15-37) U/L 32 ALT (14-59) U/L 41 Alkaline Phosphatase (46-116) U/L 82 Troponin I (<or=51) ng/L < 4 Total Protein (6.4-8.2) g/dL 8.5 H Albumin (3.4-5.0) g/dL 4.1 TSH (0.36-3.74) uIU/mL 1.73 Urine Color (Yellow) Yellow Urine Clarity (Clear) Clear Urine pH (5-8) 6.0 Ur Specific [place] (1.005-1.025) <= 1.005 Urine Protein (Neg-Trace) mg/dL Negative Urine Ketones (Negative) mg/dL Negative Urine Blood (Negative) Negative Urine Nitrite (Negative) Negative Urine Bilirubin (Negative) Negative Urine Urobilinogen (Up to 0.2) mg/dL 0.2 Ur Leukocyte Esterase (Negative) Small H Urine RBC (0-2) HPF 0-2 Urine WBC (0-5) HPF 10-20 H Ur Epithelial Cells (Negative) HPF Few Urine Crystals (Negative) HPF Negative Urine Bacteria (Negative) HPF Few Urine Casts (Negative) LPF Negative Urine Mucus (Negative) Negative Urine Other (Negative) Rare Transitional Ur Culture Indicated? Yes Urine Glucose (Negative) mg/dL Negative Medical Decision Making This dictation utilizes [id number] dictation software and may contain unedited grammatical errors. 59 year-old female presents to ED today by POV/ambulating with her with a chief complaint of headache, noted high blood pressure at home, under a lot of stress lately caring for her son and grandchildren with onset over the past couple days. Quality described as posterior headache, pinching in chest and L arm, no radiation to syncope, vision loss, vomiting, flank pain, urinary retention, shortness of breath, recent URI symptoms. Severity is described as moderate. Palliating factors include nothing specific attempted. Provoking factors include nothing specific. Patients' medical history: [ ]. Family and social history: [ ]. Pertinent exam findings / vital signs include benign cardiopulmonary exam, neuro intact, no CVA tenderness to percussion, BP 140/81. Differential / pathologies of concern include hypertensive urgency, tension headache, unlikely HTNsive emergency. Diagnostic studies of: -CBC, CMP, Trop I, UA, EKG, CT Head wo, TSH. -laboratory workup benign -CBC wnl -CMP normal kidney function -Trop negative -UA no proteinjuria -CT head wo ICH -TSH wnl Interventions of: -headache medicines, with some relief. 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 Findings not consistent with intracranial hemorrhage, hypertensive emergency, proteinuria, abnormal kidney function. Disposition of headache. Patient verbalized understanding of the plan and return to ED criteria and engaged in shared decision making. Medical Records Medical records reviewed: Yes I reviewed the patient's medical records. Imaging Data Radiologic Study: Attestation: I personally reviewed and interpreted this imaging study as follows: Imaging: CT Scan Radiologist's impression: Exam: CT Head Without Contrast Exam date and time: 11/30/2024 9:09 AM Age: 59 years old Clinical indication: Pain; Headache TECHNIQUE: Imaging protocol: Computed tomography of the head without contrast. COMPARISON: CR XR cervical spine comp 4-5V 05/01/2019 9:34 AM FINDINGS: Brain: No acute intracranial hemorrhage. No mass effect or midline shift. Mike-white matter differentiation is preserved. Cerebral ventricles: No ventriculomegaly. Paranasal sinuses: Complete opacification of the frontal sinus. Remaining paranasal sinuses are partially opacified. Mastoid air cells: Visualized mastoid air cells are well aerated. Bones: Unremarkable. No acute fracture. Soft tissues: Unremarkable. IMPRESSION: 1. No acute intracranial abnormality. 2. Paranasal sinusitis. Dictated and Authenticated by: Adan Watts MD. Lab Data Lab results reviewed: Yes I reviewed the patient's lab results. Labs: 11/30/24 09:15 Urine - Reflex from Ua Urine Culture - Pending Laboratory Tests Range/Units 11/30/24 11/30/24 08:36 09:15 WBC (4.4-10.8) 10^3/uL 8.00 RBC (3.93-5.22) 10^6/uL 5.08 Hgb (11.2-15.7) g/dL 14.5 Hct (36.0-46.0) % 43.8 MCV (80-95) fL 86 MCH (27.0-33.0) pg 28.5 MCHC (32.0-36.0) % 33.1 RDW (11.7-14.6) % 13.1 Plt Count (130-400) 10^3/uL 322 MPV (8.0-11.0) fL 9.1 Immature Gran % % 0.4 Neutrophils % % 62.0 Lymphocytes % % 23.1 Monocytes % % 10.4 Eosinophils % % 3.5 Basophils % % 0.6 Nucleated RBC % (0.0-0.3) % 0.0 Absolute Neutrophils (1.2-6.7) 10^3/uL 4.96 Absolute Lymphocytes (1.2-3.4) 10^3/uL 1.85 Absolute Monocytes (0.1-0.8) 10^3/uL 0.83 H Absolute Eosinophils (0.0-0.7) 10^3/uL 0.28 Absolute Basophils (0.0-0.2) 10^3/uL 0.05 Sodium (136-145) mmol/L 142 Potassium (3.5-5.1) mmol/L 3.7 Chloride (98-107) mmol/L 102 Carbon Dioxide (21.0-32.0) mmol/L 30.0 Anion Gap (3-11) mmol/L 10.0 BUN (7-18) mg/dL 12 Creatinine (0.55-1.02) mg/dL 0.8 Est GFR (CKD-EPI 2020) (mL/min/1.73m2) 85.89 Glucose (74-106) mg/dL 102 Calcium (8.5-10.1) mg/dL 9.9 Total Bilirubin (0.2-1.0) mg/dL 0.49 AST (15-37) U/L 32 ALT (14-59) U/L 41 Alkaline Phosphatase (46-116) U/L 82 Troponin I (<or=51) ng/L < 4 Total Protein (6.4-8.2) g/dL 8.5 H Albumin (3.4-5.0) g/dL 4.1 TSH (0.36-3.74) uIU/mL 1.73 Urine Color (Yellow) Yellow Urine Clarity (Clear) Clear Urine pH (5-8) 6.0 Ur Specific [place] (1.005-1.025) <= 1.005 Urine Protein (Neg-Trace) mg/dL Negative Urine Ketones (Negative) mg/dL Negative Urine Blood (Negative) Negative Urine Nitrite (Negative) Negative Urine Bilirubin (Negative) Negative Urine Urobilinogen (Up to 0.2) mg/dL 0.2 Ur Leukocyte Esterase (Negative) Small H Urine RBC (0-2) HPF 0-2 Urine WBC (0-5) HPF 10-20 H Ur Epithelial Cells (Negative) HPF Few Urine Crystals (Negative) HPF Negative Urine Bacteria (Negative) HPF Few Urine Casts (Negative) LPF Negative Urine Mucus (Negative) Negative Urine Other (Negative) Rare Transitional Ur Culture Indicated? Yes Urine Glucose (Negative) mg/dL Negative Quality:SDOH Health Related Social Needs: No Data to Display PFSH All Active Problems (Updated 11/30/24 @ 10:15 by ANDREA Wood) Headache (Acute) Asthma (Chronic) Nasal polyps (Acute) COPD (chronic obstructive pulmonary disease) (Chronic) Rhinosinusitis (Acute) Fatigue (Acute) Pectoralis muscle strain (Acute 03/19/22) Flank pain (Acute) Neck pain (Acute) Hyperlipidemia (Chronic) Chronic pansinusitis (Chronic 12/03/15) Allergic rhinitis (Chronic) Medical History COVID-19 Chest pain Mild persistent asthma, uncomplicated (09/24/15) MRSA (methicillin resistant staph aureus) culture positive (11/12/15) 11/26/15;[facility] Gastroesophageal reflux disease Family history of premature CAD (10/06/17) Father of [place] at age 52 Surgical History H/O colonoscopy (10/08/18) Dr Martinez, no abnormalities, repeat 10 years Nasal sinus repair (~1993) Endometrial Biopsy (~2008) 2008 2010 Endometrial Ablation DEBRIDEMENT,SINUS 11/26/15; [facility] Cholecystectomy (~2002) Bilateral salpingectomy with oophorectomy 11/28/15 DR. RAY Family History Mother Essential hypertension Depression Hyperlipidemia Father Diabetes Essential hypertension Heart disease Hyperlipidemia Sister Essential hypertension Depression Hyperlipidemia Sister Essential hypertension Personal history of malignant neoplasm UTERINE Depression Hyperlipidemia Sister Essential hypertension Hyperlipidemia Brother Essential hypertension Hyperlipidemia Asthma Grandfather Alzheimer disease Grandfather Diabetes Essential hypertension Heart disease Hyperlipidemia Asthma Grandmother Essential hypertension Personal history of malignant neoplasm UTERINE/BREAST Grandmother Diabetes Heart disease Hyperlipidemia Stroke Son Diabetes Essential hypertension Hyperlipidemia Son No problems noted. Sister Hyperlipidemia Brother Substance abuse Essential hypertension Hyperlipidemia Asthma Social History Smoking/Tobacco Use Status: Former Tobacco Use Quit Date: 11/30/07 Second Hand Exposure: Yes Smoking risk assessment performed?: Yes Drug use: Never Substance use type: does not use Caregiver/Support person: Yes Household members: spouse Housing: house Communication Needs: None Do you need help understanding health information?: Rarely Pets and animals: Yes Pets and animals: dog(s) Sexually active: Yes Do you think of yourself as: straight/heterosexual Current gender identity: female What is your relationship status?: How often do you talk on the phone with friends or family?: once per week How often do you get together with friends or relatives?: never How often do you attend restorationist or voodoo services?: 1-3 times per year Do you belong to any clubs or organized social groups?: no Panel score (0-1 are the most socially isolated patients): 1 What type of physical activity do you participate in: walking Duration: 45-60 minutes/day Frequency: 5-6 times per week Karen/Anglican: No preference Seatbelt use: always Helmet use: Yes Helmet use: always Drive intox or ride w/intox horse and wagon driver: No Do you feel safe at home: Yes Do you feel safe in your relationship?: Yes History History 2 Para 2 Hx # Term Pregnancies 2 Multiple births Hx # Pregnancies Ectopic pregnancies AB induced Hx Number of Living Children 2 AB spontaneous
--- NOTE | 2024-11-30 12:16 | DI.VRAD_ITS ---
PROCEDURE INFORMATION: Exam: CT Head Without Contrast Exam date and time: 11/30/2024 9:09 AM Age: 59 years old Clinical indication: Pain; Headache TECHNIQUE: Imaging protocol: Computed tomography of the head without contrast. COMPARISON: CR XR cervical spine comp 4-5V 05/01/2019 9:34 AM FINDINGS: Brain: No acute intracranial hemorrhage. No mass effect or midline shift. Mike-white matter differentiation is preserved. Cerebral ventricles: No ventriculomegaly. Paranasal sinuses: Complete opacification of the frontal sinus. Remaining paranasal sinuses are partially opacified. Mastoid air cells: Visualized mastoid air cells are well aerated. Bones: Unremarkable. No acute fracture. Soft tissues: Unremarkable. IMPRESSION: 1. No acute intracranial abnormality. 2. Paranasal sinusitis. Dictated and Authenticated by: Adan Watts MD. Ordering:BHAKTI Brandt MD
== END 2024-11-30 10:27 | disposition home or self-care (01) ==
PROVIDERS: Emergency Provider Physician Assistant; PCP Nurse Practitioner Family
DX: R51.9 Headache, unspecified (principal); R42 Dizziness and giddiness; R07.9 Chest pain, unspecified
CPT/HCPCS: 36415; 80053; 93005; 96374; 96375; 99285; 70450; 81003; 81015; 84443; 84484; 85025; 87086; 93010; J1100; J1200; J2765

== ENCOUNTER 2025-07-26 12:19 | Emergency (ER) | payer OTHER, SELFPAY ==
[2025-07-26 12:30] VITALS: BP 151/70; PULSE 68; RESP 18; TEMP 36.7; O2SAT 96
--- NOTE | 2025-07-26 13:20 | DI.RAD_ITS ---
Exam(s) XR TIB/FIB RT EXAM: XR TIB/FIB RT CLINICAL HISTORY: injury. TECHNIQUE: 2D digital imaging was performed of the right tibia and fibula. Two images were obtained. AP and lateral views were obtained. COMPARISON: No exams were available for comparison FINDINGS: BONES: No acute fracture is present. No bony destructive lesion is seen. Visualized portion of knee and ankle joints are unremarkable. SOFT TISSUE: Normal. IMPRESSION: Unremarkable radiographs of the right tibia and fibula. DATA REPOSITORY: RADIATION DOSE DELIVERED:
--- NOTE | 2025-07-26 13:47 | W.ED.GENAD ---
Discharge Plan Disposition Patient Disposition: Home Condition: Stable Discharge Details Clinical Impression: Contusion of right lower leg, Abrasion of leg, right, Tetanus toxoid vaccination administered at current visit Primary Care Provider: Donal Gordon ED Provider: Aide Guerrero Home Meds and New Rx's Prescriptions: No Action epinephrine 0.3 mg/0.3 mL auto-injector 0.3 ml IM Q5-15M PRN (Reason: hypersensitivity reaction) Qty: 2 4RF Dupixent Pen 300 mg/2 mL pen injector 300 mg subcut Q2W Qty: 4 11RF fexofenadine [Katie Allergy] 180 mg tablet 180 mg PO DAILY simvastatin 10 mg tablet 10 mg PO QHS Qty: 90 3RF metoprolol succinate 50 mg tablet extended release 24 hr 50 mg PO DAILY Qty: 90 3RF buspirone 10 mg tablet 10 mg PO HS Qty: 90 3RF omeprazole 40 mg capsule,delayed release(DR/EC) 40 mg PO DAILY Qty: 90 3RF albuterol sulfate 90 mcg/actuation HFA aerosol inhaler 2 puff inhalation Q6H PRN (Reason: shortness of breath or wheezing) Qty: 25.5 3RF albuterol sulfate 2.5 mg /3 mL (0.083 %) solution for nebulization 2.5 mg inhalation TID Qty: 75 3RF sertraline 50 mg tablet 50 mg PO DAILY Qty: 90 3RF fluticasone propionate 50 mcg/actuation spray,suspension 1 spray NS BID Qty: 3 4RF Rx Instructions: 50MCG budesonide-formoterol 160-4.5 mcg/actuation HFA aerosol inhaler 2 puff inhalation BID Qty: 10.2 4RF acetaminophen [Tylenol Extra Strength] 500 mg Tablet 500 mg PO PRN PRN Discharge Instructions Instructions: Abrasions ED, Minor Contusion ED, Tdap (Tetanus, Diphtheria, Pertussis) Vaccine CDC Vaccine Information Statement (VIS) Additional Instructions: Use Kedar wrap for compression. Take Tylenol Motrin as needed for pain. Discharge Data Discharge Physician: Aide Guerrero HPI General Date/Time Provider Initiated Documentation: 07/26/25 12:41. HPI Narrative: 60-year-old female presents for evaluation of injury to right lower leg. Patient states that she was moving metal pairs today when she injured her right lower leg. There is a large abrasion and contusion to anterior distal lower leg. She states that the pain does radiate down her leg. Unknown last tetanus. Related Data Home Medications ?Medication ?Instructions ?Recorded ?Confirmed acetaminophen 500 mg tablet 500 mg PO PRN PRN 10/08/18 06/26/25 (Tylenol Extra Strength) epinephrine 0.3 mg/0.3 mL 0.3 ml IM Q5-15M PRN 11/21/22 06/26/25 injection, auto-injector hypersensitivity reaction #2 ea dupilumab 300 mg/2 mL subcutaneous 300 mg (2 mL) subcut Q2W #4 mL 08/16/24 06/26/25 pen injector (Dupixm-spatial) albuterol sulfate 2.5 mg/3 mL 2.5 mg (3 mL) inhalation TID #75 mL 09/05/24 06/26/25 (0.083 %) solution for nebulization albuterol sulfate 90 mcg/actuation 2 puff inhalation Q6H PRN 09/05/24 06/26/25 aerosol inhaler shortness of breath or wheezing #25.5 grams fexofenadine 180 mg tablet 180 mg PO DAILY 10/13/24 06/26/25 (Katie Allergy) omeprazole 40 mg capsule,delayed 40 mg PO DAILY #90 tab-caps 12/02/24 06/26/25 release buspirone 10 mg tablet 10 mg PO HS #90 tabs 01/06/25 06/26/25 metoprolol succinate 50 mg 50 mg PO DAILY #90 tabs 01/06/25 06/26/25 tablet,extended release 24 hr simvastatin 10 mg tablet 10 mg PO QHS #90 tabs 01/06/25 06/26/25 sertraline 50 mg tablet 50 mg PO DAILY #90 tabs 04/10/25 06/26/25 budesonide-formoterol HFA 160 2 puff inhalation BID #10.2 grams 06/08/25 06/26/25 mcg-4.5 mcg/actuation aerosol inhaler fluticasone propionate 50 1 spray NS BID #3 ea 06/08/25 06/26/25 mcg/actuation nasal spray,suspension Previous Rx's ?Medication ?Instructions ?Recorded epinephrine 0.3 mg/0.3 mL 0.3 ml IM Q5-15M PRN 11/21/22 injection, auto-injector hypersensitivity reaction #2 ea dupilumab 300 mg/2 mL subcutaneous 300 mg (2 mL) subcut Q2W #4 mL 08/16/24 pen injector (Dupixent) albuterol sulfate 2.5 mg/3 mL 2.5 mg (3 mL) inhalation TID #75 mL 09/05/24 (0.083 %) solution for nebulization albuterol sulfate 90 mcg/actuation 2 puff inhalation Q6H PRN 09/05/24 aerosol inhaler shortness of breath or wheezing #25.5 grams omeprazole 40 mg capsule,delayed 40 mg PO DAILY #90 tab-caps 12/02/24 release buspirone 10 mg tablet 10 mg PO HS #90 tabs 01/06/25 metoprolol succinate 50 mg 50 mg PO DAILY #90 tabs 01/06/25 tablet,extended release 24 hr simvastatin 10 mg tablet 10 mg PO QHS #90 tabs 01/06/25 sertraline 50 mg tablet 50 mg PO DAILY #90 tabs 04/10/25 budesonide-formoterol HFA 160 2 puff inhalation BID #10.2 grams 06/08/25 mcg-4.5 mcg/actuation aerosol inhaler fluticasone propionate 50 1 spray NS BID #3 ea 06/08/25 mcg/actuation nasal spray,suspension Allergies Allergy/AdvReac Type Severity Reaction Status Date / Time aspirin Allergy Severe Anaphylaxsi Verified 07/26/25 12:34 s ketorolac Allergy Severe Anaphylaxsi Verified 07/26/25 12:34 s NSAIDS (Non-Steroidal Allergy Severe Anaphylaxsi Verified 07/26/25 12:34 Anti-Inflamma s montelukast sodium (From AdvReac Mild Migraines Verified 07/26/25 12:34 Singulair) viscious green dragon Allergy Severe unknown Uncoded 07/26/25 12:34 General Stated Complaint: Orthopedic KWAME: 3 Review of Systems Narrative: Remainder of review of systems otherwise negative except for as noted in the HPI x 5. Exam Narrative Exam Narrative: General: non-toxic, no respiratory distress, comfortable HEENT: normocephalic, atraumatic, lids and lashes normal, PERRL, EOMI, anicteric sclera, no conjunctival injection, moist oral mucosa Musculoskeletal: Abrasion and contusion to right anterior lower leg, 2+ dorsal pedal pulses, no pain to palpation over the lateral or medial malleolus, Achilles intact, full range of motion of arms and legs, no tenderness to palpation. no clubbing, cyanosis, or edema Neurologic: appropriate for age, strength normal Psych: alert and oriented Skin: As above, otherwise no petechiae, no lesions, warm and dry Course Vital Signs Vital signs: Vital Signs Temperature 36.7 C 07/26/25 12:30 Pulse 68 07/26/25 12:30 Respiratory Rate 18 07/26/25 12:30 Blood Pressure 151/70 H 07/26/25 12:30 Pulse Oximetry 96 07/26/25 12:30 Temperature 36.7 C 07/26/25 12:30 Temperature Source Oral 07/26/25 12:30 Pulse 68 07/26/25 12:30 Respiratory Rate 18 07/26/25 12:30 Blood Pressure 151/70 H 07/26/25 12:30 Blood Pressure Position Sitting 07/26/25 12:30 Pulse Oximetry 96 07/26/25 12:30 Oxygen Delivery Method Room Air 07/26/25 12:30 Oxygen Flow Rate 0 07/26/25 12:30 Pain Level 6 07/26/25 12:30 Medical Decision Making 60-year-old female presents for evaluation of right lower leg injury. X-rays negative for fracture. Clinically she does have an abrasion and contusion. Area was washed by nursing and bandage applied. Kedar wrap applied. Patient's tetanus was updated as previous looks like it was in 2006. She is instructed on wound care. She will take Tylenol Motrin as needed for pain. She will ice and elevate. She understands indications to return. [facility] All Active Problems Tetanus toxoid vaccination administered at current visit (Acute) Abrasion of leg, right (Acute) Contusion of right lower leg (Acute) Asthma (Chronic) Nasal polyps (Acute) COPD (chronic obstructive pulmonary disease) (Chronic) Rhinosinusitis (Acute) Fatigue (Acute) Pectoralis muscle strain (Acute 03/19/22) Flank pain (Acute) Neck pain (Acute) Hyperlipidemia (Chronic) Chronic pansinusitis (Chronic 12/03/15) Allergic rhinitis (Chronic) Medical History COVID-19 Chest pain Mild persistent asthma, uncomplicated (09/24/15) MRSA (methicillin resistant staph aureus) culture positive (11/12/15) 11/26/15;[facility] Gastroesophageal reflux disease Family history of premature CAD (10/06/17) Father of GA at age 52 Surgical History H/O colonoscopy (10/08/18) Dr Martinez, no abnormalities, repeat 10 years Nasal sinus repair (~1993) Endometrial Biopsy (~2008) 2008 2010 Endometrial Ablation DEBRIDEMENT,SINUS 11/26/15; [facility] Cholecystectomy (~2002) Bilateral salpingectomy with oophorectomy 11/28/15 DR. RAY Family History Mother Essential hypertension Depression Hyperlipidemia Father Diabetes Essential hypertension Heart disease Hyperlipidemia Sister Essential hypertension Depression Hyperlipidemia Sister Essential hypertension Personal history of malignant neoplasm UTERINE Depression Hyperlipidemia Sister Essential hypertension Hyperlipidemia Brother Essential hypertension Hyperlipidemia Asthma Grandfather Alzheimer disease Grandfather Diabetes Essential hypertension Heart disease Hyperlipidemia Asthma Grandmother Essential hypertension Personal history of malignant neoplasm UTERINE/BREAST Grandmother Diabetes Heart disease Hyperlipidemia Stroke Son Diabetes Essential hypertension Hyperlipidemia Son No problems noted. Sister Hyperlipidemia Brother Substance abuse Essential hypertension Hyperlipidemia Asthma Social History Smoking/Tobacco Use Status: Current every day Tobacco Type: e-cigarettes Second Hand Exposure: Yes Smoking risk assessment performed?: Yes Alcohol Intake: current Alcohol Intake frequency: a few times a week Alcohol type: wine Drug use: Never Substance use type: does not use Caregiver/Support person: Yes Household members: spouse Housing: house Communication Needs: None Do you need help understanding health information?: Rarely Pets and animals: Yes Pets and animals: dog(s) Sexually active: Yes Do you think of yourself as: straight/heterosexual Current gender identity: female What is your relationship status?: How often do you talk on the phone with friends or family?: once per week How often do you get together with friends or relatives?: never How often do you attend islam or jehovah's witness services?: 1-3 times per year Do you belong to any clubs or organized social groups?: no Panel score (0-1 are the most socially isolated patients): 1 What type of physical activity do you participate in: walking Duration: 45-60 minutes/day Frequency: 5-6 times per week Karen/Jain: No preference Seatbelt use: always Helmet use: Yes Helmet use: always Drive intox or ride w/intox regional driver: No Do you feel safe at home: Yes Do you feel safe in your relationship?: Yes History History 2 Para 2 Hx # Term Pregnancies 2 Multiple births Hx # Pregnancies Ectopic pregnancies AB induced Hx Number of Living Children 2 AB spontaneous
[2025-07-26] MEDS: Diph,Pertuss(Acell),Tet Vac/Pf 0.5 ML SYR IM (13:58)
== END 2025-07-26 14:07 | disposition home or self-care (01) ==
PROVIDERS: Emergency Provider Emergency Medicine Emergency Medical Services; PCP Nurse Practitioner Family
DX: S80.811A Abrasion, right lower leg, initial encounter (principal); W22.8XXA Striking against or struck by other objects, initial encounter; Z23 Encounter for immunization
CPT/HCPCS: 99283; 99284; 90471; 90715; 73590